=== PATIENT | male | born 1950 | race Caucasian/White ===

== ENCOUNTER → 2022-05-31 | Outpatient (CLI) | payer MEDICARE ==
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
== END | disposition home or self-care (01) ==
LOC: RADPETMAIN 07:51
PROVIDERS: ATTEND Urology
DX: C61 Malignant neoplasm of prostate (principal)
CPT/HCPCS: 78815

== ENCOUNTER → 2022-06-07 | Outpatient (CLI) | payer MEDICARE ==
--- NOTE | 2022-06-09 07:54 | PE ---
EXAMINATION TYPE: PET CT fusion skull to thigh DATE OF EXAM: 06/07/2022 CLINICAL INDICATION:Male, 71 years old with history of C61 prostate ca; TECHNIQUE: Following the intravenous administration of 6.01 mCi of Ga-68 Illuccix (PSMA), whole bod y images are performed from the skull base to the midthigh. Images are reviewed on the computer in t he coronal, axial, and sagittal planes. Reconstructed rotating images are created on independent wor kstation and reviewed on the computer. A non-contrast CT is performed in conjunction with the PET s can. Glucose level 100 mg/dL COMPARISON: CT None, PET/CT None, FINDINGS: Mediastinal SUV mean is 0.4. Hepatic parenchyma SUV mean is 5.4. SKULL BASE AND NECK: Left cheek focus of increased radiotracer uptake max SUV 3.5 measuring 11 x 7 m m. CHEST, MEDIASTINUM, AND HILAR REGION: No suspicious FDG activity. ABDOMEN AND PELVIS: * In the left prostate central gland is an elongated linear area of increased radiotracer uptake max SUV 7.9 is felt to represent the felt to represent urine within the prostatic urethra. * There is a lymph node adjacent to the right urethra at the ureteropelvic junction which measures 6 mm which felt to not not have increased radiotracer uptake uptake nearby is felt to be secondary to the nearby adjacent ureter. OSSEOUS STRUCTURES: No suspicious FDG activity. OTHER CT: Mucosal thickening of the right maxillary sinus. Bilateral aphakia. Degeneration changes ch anges of the shoulders heart is mildly enlarged for size mild coronary artery atherosclerosis. Left n onobstructing renal calculus. Small hiatal hernia. Prostate gland is enlarged. IMPRESSION: 1. No suspicious radiotracer activity to suggest metastatic disease at this time. 2. Left cheek soft tissue with increased radiotracer uptake is felt to represent minor salivary glan d tissue.
== END | disposition home or self-care (01) ==
LOC: RADPETMAIN 06:54
PROVIDERS: ATTEND Urology
DX: C61 Malignant neoplasm of prostate (principal); R22.0 Localized swelling, mass and lump, head
CPT/HCPCS: 78815; A9596

== ENCOUNTER → 2023-05-21 | Outpatient (CLI) | payer MEDICARE ==
--- NOTE | 2023-05-22 08:09 | MR ---
EXAMINATION TYPE: MR Prostate wo/w con DATE OF EXAM: 05/21/2023 10:18 AM COMPARISON: CT 09/17/2022, PET/CT 06/07/2022. CLINICAL INDICATION:Male, 72 years old with history of C61 NEOPLASM OF PROSTATE; Prostate ca, elevate d psa, partial prostate removal TECHNIQUE: Multi-planar, multi-sequence imaging of the pelvis is performed prior to and following the uncomplicated administration of bolus intravenous gadolinium. CONTRAST: 8 Gadavist Interpretive Criteria: PI-RADS v2.1 SERUM PSA: 3.0 on 2022. 2.5 on 07/16/2022. 2.6 vs 2.0 ? on 01/09/2022.(cannot read document) SURGICAL PATHOLOGY: Positive biopsy on 3 of the samples on 04/08/2023. Involving the left lateral mid, left lateral apex a nd left apex FINDINGS: Prostatic dimensions: 5.3 x 4.5 x 4.7 cm. Ellipsoid Volume:58.69 (PSA density=0.05 ng/mL/mL) CENTRAL GLAND (Central and Transition Zones/CZ+TZ): Post transurethral resection of the prostate without suspicious lesion. Stromal nodules noted postsur gical morphology to the central gland. 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 (PI -RADS 2) SEMINAL VESICLES (SV): Symmetric and unremarkable. PERIPROSTATIC TISSUES: Unremarkable. LYMPH NODES: External iliac lymph nodes measuring up to 9 mm in short axis on the right and 8 mm on the left are s table from prior exam. REMAINING PELVIS: Bladder wall is within normal limits given distention. No abnormal free or organized intrapelvic fluid collection. No pathologic bowel dilation or mural thickening. Bilateral fat containing inguinal hernias. OSSEOUS STRUCTURES: No suspicious osseous abnormality. IMPRESSION: 1. Post transurethral resection of the prostate. No specific features for high-risk prostate cancer. Maximum PI-RADS score: 2. 2. No suspicious osseous lesion. No lymphadenopathy. No evidence of prostate adenocarcinoma involving the periprostatic tissues.
== END | disposition home or self-care (01) ==
LOC: RADMRIMAIN 09:08
PROVIDERS: ATTEND Radiology Radiation Oncology
DX: C61 Malignant neoplasm of prostate (principal); R97.20 Elevated prostate specific antigen [PSA]; Z90.79 Acquired absence of other genital organ(s)
CPT/HCPCS: 72197; A9585

== ENCOUNTER → 2023-05-21 | Outpatient (CLI) | payer MEDICARE ==
[2023-05-21 16:50] LABS: ALT 36 U/L (10-49); AST 33 U/L (14-35); Albumin 4.2 g/dL (3.8-4.9); Alkaline Phosphatase 84 U/L (41-126); BUN/Creat Ratio 21.14 Ratio (12.00-20.00); Blood Urea Nitrogen 14.8 mg/dL (9.0-27.0); Calcium 10.3 mg/dL (8.7-10.3); Carbon Dioxide 24.7 mmol/L (21.6-31.8); Chloride 106 mmol/L (96-109); Globulin 2.1 g/dL (1.6-3.3); Glucose 69 mg/dL (70-110); Potassium 4.3 mmol/L (3.5-5.5); Sodium 141 mmol/L (135-145); Total Bilirubin 0.6 mg/dL (0.3-1.2); Total Protein 6.3 g/dL (6.2-8.2)
== END | disposition home or self-care (01) ==
LOC: LABWHC1 10:33
PROVIDERS: ATTEND Internal Medicine Endocrinology, Diabetes & Metabolism
DX: E21.0 Primary hyperparathyroidism (principal)
CPT/HCPCS: 36415; 80053; 82306; 83970; 84443

== ENCOUNTER → 2023-05-27 | Outpatient (CLI) | payer MEDICARE ==
[2023-05-27 18:16] LABS: Basophils # (A) 0.04 X 10*3/uL (0.00-0.10); Basophils % (A) 0.6 %; Eosinophils # (A) 0.17 X 10*3/uL (0.04-0.35); Eosinophils % (A) 2.6 %; HCT 44.5 % (39.6-50.0); Lymphocytes # (A) 1.41 X 10*3/uL (0.90-5.00); MCH 30.4 pg (27.0-32.0); MCHC 31.5 g/dL (32.0-37.0); MCV 96.7 FL (80.0-97.0); Mean Platelet Volume 10.1 FL (9.5-12.2); Monocytes # (A) 0.48 X 10*3/uL (0.20-1.00); Monocytes % (A) 7.5 %; NRBC Per 100 WBC 0 X 10*3/uL (0.00-0.01); Platelet Count 202 X 10*3/uL (140-440); RDW 12.5 % (11.5-14.5); WBC 6.42 X 10*3/uL (4.50-10.00)
[2023-05-27 18:27] LABS: BUN/Creat Ratio 19.67 Ratio (12.00-20.00); Blood Urea Nitrogen 17.7 mg/dL (9.0-27.0); Calcium 10.3 mg/dL (8.7-10.3); Carbon Dioxide 28.9 mmol/L (21.6-31.8); Chloride 107 mmol/L (96-109); Glucose 86 mg/dL (70-110); Potassium 4.7 mmol/L (3.5-5.5); Sodium 144 mmol/L (135-145)
== END | disposition home or self-care (01) ==
LOC: LABPAT 12:49
PROVIDERS: ATTEND Urology
DX: Z01.812 Encounter for preprocedural laboratory examination (principal); C61 Malignant neoplasm of prostate
CPT/HCPCS: 36415; 80048; 85025

== ENCOUNTER 2023-06-05 06:29 | Day surgery (SDC) | payer MEDICARE ==
--- NOTE | 2023-06-04 20:14 | P.GSHP ---
History of Present Illness H&P Date: 06/04/23 Chief Complaint: Prostate cancer The patient is a 72-year-old white male diagnosed with prostate cancer in April 2022. His PSA level at that time was 2.6, and 3 of 12 biopsies showed [place] 6 prostate cancer. He underwent a TURP in 2014 he chose to proceed with active surveillance. He underwent a secondary TURP in August 2022 for persistent voiding symptoms despite taking finasteride. Prostate ultrasound with biopsies in April 2023 showed [place] 7 adenocarcinoma in 3 of 12 biopsies. He has elected to undergo IMRT and now commes for SpaceOAR implant. - Cardiovascular Cardiovascular: Reports high blood pressure Past Medical History Past Medical History: Cancer, Hypertension, Osteoarthritis (OA), Thyroid Disorder Additional Past Medical History / Comment(s): hx of benign tumors on thyroid., hx of cellulitis leg & foot., covid 06/2021 with antibody tx., curvature of spine & back pain., urine incontinence, cancer of prostate., Pt states he had 2 episodes where he felt "disoriented" and was taken to the hospital-[facility] in mar 2022- was told he had an infection and diagnosed with prostate cancer. red rash rt wrist and arm. History of Any Multi-Drug Resistant Organisms: None Reported Past Surgical History: Appendectomy, Joint Replacement, Orthopedic Surgery, Tonsillectomy Additional Past Surgical History / Comment(s): .1976 knee surgery, reilly total knees x2 each., 1998 thyroid tumors removed., prostate surgery.,"microwave" "prostate procedure Past Anesthesia/Blood Transfusion Reactions: No Reported Reaction Smoking Status: Never smoker - Past Family History Mother Family Medical History: No Reported History Father Family Medical History: Deep Vein Thrombosis (DVT) Medications and Allergies Home Medications Medication Instructions Recorded Confirmed Type Ascorbic Acid [Vitamin C] 1,000 mg PO BID 08/23/22 05/28/23 History Cholecalciferol [Vitamin D3 (25 50 mcg PO BID 08/23/22 05/28/23 History Mcg = 1000 Iu)] Diclofenac Sodium [Voltaren 1 applic TOPICAL DIRECTED 08/23/22 05/28/23 History Arthritis Pain 1% Gel] Ferrous Sulfate [Feosol] 325 mg PO DAILY 08/23/22 05/28/23 History Finasteride [Proscar] 5 mg PO HS 08/23/22 05/28/23 History Hydroxychloroquine Sulfate 200 mg PO BID 08/23/22 05/28/23 History [Plaquenil] Mv-Min/Folic/K1/Lycopen/Lutein 1 each PO DAILY 08/23/22 05/28/23 History [Centrum Silver Men Tablet] amLODIPine [Norvasc] 5 mg PO DAILY 08/23/22 05/28/23 History Cinacalcet [Sensipar] 30 mg PO HS 05/28/23 05/28/23 History Oxybutynin ER [Ditropan XL] 10 mg PO HS 05/28/23 05/28/23 History Allergies Allergy/AdvReac Type Severity Reaction Status Date / Time prednisone Allergy Unknown Rash/Hives Verified 05/28/23 13:45 Surgical - Exam - General well developed, well nourished, no distress - Respiratory normal respiratory effort - Genitourinary normal penis with no external lesions, testicles non-tender - Rectum Rectum: normal sphincter tone, no masses, other (Prostate mildly enlarged but smooth) - Psychiatric oriented to time, oriented to person, oriented to place, speech is normal, memory intact Assessment and Plan (1) Malignant neoplasm of prostate Status: Acute Code(s): C61 - MALIGNANT NEOPLASM OF PROSTATE SNOMED Code(s): 698615921 Plan: The SpaceOar implant has been reviewed in detail with the patient. He understands that the rationale for this is to create separation between the prostate and rectum, thus reducing the risk of radiation proctitis. The material begins to breakdown 12-13 weeks following implant, and is reabsorbed by the body. Risks include anesthesia, bleeding, infection, and perineal discomfort. He understands that if the rectal wall is perforated the procedure will need to be aborted.
[2023-06-05] MEDS ORDERED: ONDANSETRON 4 MG/2 ML VIAL IVP ONE (07:27)
[2023-06-05] MEDS ORDERED: LACTATED RINGERS 1,000 ML IV SCH (07:27)
[2023-06-05] MEDS ORDERED: HYDROmorphone 0.5 MG/0.5 ML SYRINGE IVP PRN (07:27)
[2023-06-05 08:04] VITALS: TEMP 97.8
[2023-06-05] MEDS ORDERED: fentaNYL (PF) 50 MCG/ML 2 ML AMP ONE (09:12)
[2023-06-05] MEDS ORDERED: MIDAZOLAM 2 MG/2 ML VIAL ONE (09:12)
[2023-06-05] MEDS ORDERED: PROPOFOL 10 MG/ML 20 ML VIAL IV ONE (09:12)
[2023-06-05] MEDS ORDERED: LIDOCAINE 2% INJ 20 MG/ML SQ ONE (09:32)
--- NOTE | 2023-06-05 09:43 | P.OP ---
Date of Procedure: 06/05/23 Preoperative Diagnosis: Adenocarcinoma of the prostate Postoperative Diagnosis: Same Procedure(s) Performed: SpaceOAR Implant Anesthesia: MAC Surgeon: Gennaro Lucero Estimated Blood Loss (ml): 5 IV fluids (ml): 500 Pathology: none sent Condition: stable Disposition: PACU Indications for Procedure: The patient is a 72-year-old white male diagnosed with prostate cancer in April 2022. His PSA level at that time was 2.6, and 3 of 12 biopsies showed [place] 6 prostate cancer. He underwent a TURP in 2014 he chose to proceed with active surveillance. He underwent a secondary TURP in August 2022 for persistent voiding symptoms despite taking finasteride. Prostate ultrasound with biopsies in April 2023 showed Trisha 7 adenocarcinoma in 3 of 12 biopsies. He has elected to undergo IMRT and now commes for SpaceOAR implant. Operative Findings: 15 mm separation created between prostate and rectum. Description of Procedure: The patient was taken to the operating room and placed in the dorsolithotomy position, with his legs supported in Antwan stirrups. The external genitalia was prepped and draped sterilely. The Bruel and Kjaer transrectal ultrasound probe was placed intrarectally. The prostate was imaged. The probe was then placed within the stabilizing stand. A spinal needle was advanced under ultrasonic guidance to the level of the urogenital diaphragm, and lidocaine was used to infiltrate the tissues as the needle was withdrawn. Next, the SpaceOAR needle was passed through the midline of the perineum, 1-2 cm anterior to the anal opening. The needle was slowly advanced under ultrasonic guidance until the needle tip was located within the fat plane between the prostate and rectum, at the level of the mid prostate gland. The needle was confirmed to be midline on the axial imaging. A small amount of normal saline was injected for hydrodissection. Next, the SpaceOAR components were mixed and loaded into the Y connector per protocol. The Y connector was then connected to the needle, and the components were injected slowly over a course of approximately 12 seconds. A total of 11 ml was injected. Significant distance was created between the prostate and rectum, as desired. It should be noted that at no point was there any concern of rectal perforation. The needle was withdrawn, as well as the transrectal ultrasound probe, and the procedure was terminated. The patient tolerated the procedure well and was taken to the recovery room in stable condition.
[2023-06-05 10:22] VITALS: RESP 16
[2023-06-05 10:46] VITALS: BP 132/79; PULSE 59
== END 2023-06-05 10:48 | disposition home or self-care (01) ==
LOC: OR 06:29
PROVIDERS: ATTEND Urology
DX: C61 Malignant neoplasm of prostate (principal); I10 Essential (primary) hypertension; M19.90 Unspecified osteoarthritis, unspecified site; E07.9 Disorder of thyroid, unspecified; Z86.16 Personal history of COVID-19; Z90.49 Acquired absence of other specified parts of digestive tract; Z85.46 Personal history of malignant neoplasm of prostate; Z96.659 Presence of unspecified artificial knee joint; Z98.890 Other specified postprocedural states; Z79.899 Other long term (current) drug therapy; Z88.8 Allergy status to other drugs, medicaments and biological substances
CPT/HCPCS: 55874; C1889; J2001; J2250; J0690; J2405; J3010; J2704

== ENCOUNTER → 2023-07-16 | Outpatient (CLI) | payer MEDICARE | END | disposition home or self-care (01) | LOC: LABWHC1 11:47 | PROVIDERS: ATTEND Urology | DX: C61 Malignant neoplasm of prostate (principal) | CPT/HCPCS: 36415; 84153 ==

== ENCOUNTER → 2024-09-24 | Outpatient (CLI) | payer MEDICARE ==
[2024-09-25 02:37] LABS: Calcium 11.2 mg/dL (8.7-10.3); Carbon Dioxide 29.6 mmol/L (21.6-31.8); Chloride 105 mmol/L (96-109); Glucose 93 mg/dL (70-110); Potassium 5.1 mmol/L (3.5-5.5); Sodium 144 mmol/L (135-145)
[2024-09-25 02:46] LABS: NT-Pro-B-Type Natriuretic Pept 1396 pg/mL (0-125)
== END | disposition home or self-care (01) ==
LOC: LABWHC1 14:55
PROVIDERS: ATTEND Internal Medicine Cardiovascular Disease
DX: I50.22 Chronic systolic (congestive) heart failure (principal)
CPT/HCPCS: 36415; 80048; 83880

== ENCOUNTER 2024-12-23 15:52 | Inpatient (IN) | payer MEDICARE ==
--- NOTE | 2024-12-23 16:15 | ED ---
General Adult HPI - General Chief complaint: Weakness Stated complaint: dizziness Time Seen by Provider: 12/23/24 15:54 Source: patient, EMS, RN notes reviewed Mode of arrival: EMS Limitations: no limitations - History of Present Illness Initial comments: Patient is a 73-year-old male present to the emergency department with concerns with dizziness. Patient did go to [place] and was found to have elevated troponin and transferred here for non-ST elevation myocardial infarction. There is also concern for tachybradycardia syndrome based off EKG changes. Patient had head CT which was reported as unremarkable. I do not find record of chest x-ray and this will be added. Patient reportedly had elevated troponin 0.125. Patient states only has symptoms when he gets up and moves around. Currently patient is symptom-free. No history of chest pain. Patient does see Dr. Leyva with cardiology. - Related Data Home Medications Medication Instructions Recorded Confirmed Ascorbic Acid [Vitamin C] 1,000 mg PO BID 08/23/22 06/05/23 Cholecalciferol [Vitamin D3 (25 50 mcg PO BID 08/23/22 05/28/23 Mcg = 1000 Iu)] Diclofenac Sodium [Voltaren 1 applic TOPICAL DIRECTED 08/23/22 05/28/23 Arthritis Pain 1% Gel] Ferrous Sulfate [Feosol] 325 mg PO DAILY 08/23/22 06/05/23 Finasteride [Proscar] 5 mg PO HS 08/23/22 05/28/23 Hydroxychloroquine Sulfate 200 mg PO BID 08/23/22 05/28/23 [Plaquenil] Mv-Min/Folic/K1/Lycopen/Lutein 1 each PO DAILY 08/23/22 06/05/23 [Centrum Silver Men Tablet] amLODIPine [Norvasc] 5 mg PO DAILY 08/23/22 06/05/23 Cinacalcet [Sensipar] 30 mg PO HS 05/28/23 05/28/23 Oxybutynin ER [Ditropan XL] 10 mg PO HS 05/28/23 05/28/23 Allergies Allergy/AdvReac Type Severity Reaction Status Date / Time prednisone Allergy Unknown Rash/Hives Verified 06/05/23 07:45 Review of Systems ROS Statement: Those systems with pertinent positive or pertinent negative responses have been documented in the HPI. ROS Other: All systems not noted in ROS Statement are negative. Constitutional: Denies: fever Eyes: Denies: eye pain ENT: Denies: ear pain Respiratory: Denies: dyspnea Cardiovascular: Denies: chest pain Endocrine: Denies: fatigue Gastrointestinal: Denies: abdominal pain Genitourinary: Denies: dysuria Musculoskeletal: Denies: back pain Neurological: Reports: as per HPI. Denies: headache, weakness Past Medical History Past Medical History: Hypertension, Osteoarthritis (OA) Additional Past Medical History / Comment(s): hx of benign tumors on thyroid., hx of cellulitis leg & foot., covid 06/2021 with antibody tx., curvature of spine & back pain., urine incontinence, cancer of prostate., Pt states he had 2 episodes where he felt "disoriented" and was taken to the hospital-[facility] in mar 2022- was told he had an infection and diagnosed with prostate cancer. History of Any Multi-Drug Resistant Organisms: None Reported Past Surgical History: Appendectomy, Joint Replacement, Orthopedic Surgery, Tonsillectomy Additional Past Surgical History / Comment(s): .1976 knee surgery, reilly total knees x2 each., 1998 thyroid tumors removed., prostate surgery.,"microwave" "prostate procedure Past Anesthesia/Blood Transfusion Reactions: No Reported Reaction Smoking Status: Never smoker - Past Family History Mother Family Medical History: No Reported History Father Family Medical History: Deep Vein Thrombosis (DVT) General Exam Limitations: no limitations General appearance: alert, in no apparent distress Head exam: Present: normocephalic Eye exam: Present: normal appearance, PERRL, EOMI Neck exam: Present: normal inspection Respiratory exam: Present: normal lung sounds bilaterally Cardiovascular Exam: Present: regular rate, normal rhythm Expanded Peripheral pulses: 2+: Radial (R), Radial (L), Posterior Tibialis (R), Posterior Tibialis (L) GI/Abdominal exam: Present: soft. Absent: tenderness Extremities exam: Present: normal inspection. Absent: pedal edema, calf tenderness Neurological exam: Present: alert Psychiatric exam: Present: normal affect, normal mood Skin exam: Present: normal color EKG Findings - EKG Results: EKG: interpreted by ERMD (Left axis. Nonspecific intraventricular conduction delay. Poor R wave progression.), sinus rhythm, normal ST/T EKG shows: bradycardia Medical Decision Making - Medical Decision Making Was pt. sent in by a medical professional or institution (OUMAR Forrest, INVESTOR RELATIONS COORDINATOR, urgent care, hospital, or penitentiary...) When possible be specific @ -Patient sent from [facility] Did you speak to anyone other than the patient for history (EMS, parent, family, police, friend...)? What history was obtained from this source @ -Chart reviewed from [facility] Did you review nursing and triage notes (agree or disagree)? Why? @ -I reviewed and agree with nursing and triage notes Were old charts reviewed (outside hosp., previous admission, EMS record, old EKG, old radiological studies, urgent care reports/EKG's, penitentiary records)? Report findings @ -No old charts were reviewed Differential Diagnosis (chest pain, altered mental status, abdominal pain women, abdominal pain men, vaginal bleeding, weakness, fever, dyspnea, syncope, headache, dizziness, GI bleed, back pain, seizure, CVA, palpatations, mental health, musculoskeletal)? @ -Differential Chest Pain: Stable Angina, Unstable Angina, STEMI, NSTEMI Aortic Dissection, Pneumothorax, Musculoskeletal, Esophageal Spasm GERD, Cholecystitis, Pancreatitis, Zoster, this is not meant to be an all-inclusive list. EKG interpreted by me (3pts min.). @ -As above X-rays interpreted by me (1pt min.). @ -Chest x-ray does not reveal acute abnormality CT interpreted by me (1pt min.). @ -None done U/S interpreted by me (1pt. min.). @ -None done What testing was considered but not performed or refused? (CT, X-rays, U/S, labs)? Why? @ -Chest x-ray ordered, troponin ordered What meds were considered but not given or refused? Why? @ -None Did you discuss the management of the patient with other professionals (professionals i.e. OUMAR Forrest, INVESTOR RELATIONS COORDINATOR, lab, RT, psych nurse, social services, fraternity adviser, teacher, flight radio officer, manager of case)? Give summary @ -Case discussed with practitioner Yung who will admit covering hospital call. Was smoking cessation discussed for >3mins.? @ -No Was critical care preformed (if so, how long)? @ -31 minutes critical care time Were there social determinants of health that impacted care today? How? (Homelessness, low income, unemployed, alcoholism, drug addiction, transportation, low edu. Level, literacy, decrease access to med. care, assisted, rehab)? @ -No Was there de-escalation of care discussed even if they declined (Discuss DNR or withdrawal of care, Hospice)? DNR status @ -No What co-morbidities impacted this encounter? (DM, HTN, Smoking, COPD, CAD, Cancer, CVA, ARF, Chemo, Hep., AIDS, mental health diagnosis, sleep apnea, morbid obesity)? @ -History of cardiac disease, sees Dr. Leyva Was patient admitted / discharged? Hospital course, mention meds given and route, prescriptions, significant lab abnormalities, going to OR and other pertinent info. @ -Patient transferred with concerns for elevated troponin and tachybradycardia syndrome. Patient is symptom-free at this time. Patient has reported elevated troponin and started on Lovenox. Patient will be started on heparin later this evening. Patient will be admitted with cardiac consultation. Troponin redrawn. Patient updated on plan. Undiagnosed new problem with uncertain prognosis? @ -No Drug Therapy requiring intensive monitoring for toxicity (Heparin, Nitro, Insulin, Cardizem)? @ -Heparin to be started Were any procedures done? @ -No Diagnosis/symptom? @ -Non-ST elevation myocardial infarction Acute, or Chronic, or Acute on Chronic? @ -Acute Uncomplicated (without systemic symptoms) or Complicated (systemic symptoms)? @ -Default Side effects of treatment? @ -No Exacerbation, Progression, or Severe Exacerbation? @ -No Poses a threat to life or bodily function? How? (Chest pain, [place], [place], pneumonia, PE, COPD, DKA, ARF, appy, cholecystitis, CVA, Diverticulitis, Homicidal, Suicidal, threat to staff... and all critical care pts) @ -Threat to cardiac function Disposition Clinical Impression: NSTEMI (non-ST elevated myocardial infarction) Disposition: ADMITTED IP TO THIS HOSP Is patient prescribed a controlled substance at d/c from ED?: No Referrals: Zane Roth DO [Primary Care Provider] - 1-2 days Time of Disposition: 16:51
[2024-12-23] MEDS ORDERED: NITROGLYCERIN SL TABS 0.4 MG TAB SUBLINGUAL PRN (16:52)
--- NOTE | 2024-12-23 16:57 | XR ---
EXAMINATION TYPE: XR chest 2V DATE OF EXAM: 12/23/2024 4:47 PM COMPARISON: PET CT 06/07/2022 TECHNIQUE: XR chest 2V Frontal and lateral views of the chest. CLINICAL INDICATION:Male, 73 years old with history of cp; FINDINGS: Lungs/Pleura: There is no evidence of pleural effusion, focal consolidation, or pneumothorax. Pulmonary vascularity: Unremarkable. Heart/mediastinum: Cardiomediastinal silhouette is prominent in size. Musculoskeletal: Multiple level degenerative disc disease changes seen throughout the spine. Bilatera l shoulder arthropathy. Other: Surgical clips within the right lower neck. IMPRESSION: No acute cardiopulmonary disease/process. [facility], , 12/23/2024 4:54 PM
[2024-12-23] MEDS: ASPIRIN 81 MG PO STA (17:07)
--- NOTE | 2024-12-23 18:06 | P.HPIM ---
History of Present Illness H&P Date: 12/23/24 History of Presenting Illness: Patient is a very pleasant 73-year-old male with a past medical history of prostate cancer status post prostatectomy followed by radiation treatment, skin cancer status post removal, colon cancer status post bowel resection, hypertension, chronic urinary and bowel incontinence, and recently diagnosed heart failure. 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 He presented to our facility as a transfer from [facility] where he initially presented with a chief complaint of dizziness and balance issues. Patient underwent evaluation at their facility. Vital signs upon arrival to their facility show blood pressure 129/68, heart rate 101, respiratory rate 18, and SpO2 of 98% on room air. CT head without contrast was completed negative for acute intercranial process showing nonspecific white matter changes likely secondary to chronic small vessel ischemic disease. Labs completed and reviewed. CBC showing WBC count of 5.37, hemoglobin of 15.0, and platelet count of 196. BMP showing sodium 139, potassium 4.9, chloride of 107, bicarb of 27, BUN of 32.4, creatinine 1.08, and GFR of 71.04. Calcium 10.6, . Blood glucose 120. Liver profile unremarkable. Magnesium 2.8. Procalcitonin negative at 0.07. TSH 1.19. Lactic acid was 1.2 troponin was elevated at 0.125. EKG revealing sinus mechanism with T wave inversion in lateral leads I and aVL. Patient was given aspirin 325 mg x 1 dose, Plavix 75 mg x 1 dose and Lovenox 80 mg subcutaneously and transferred to our facility for higher level of care. Upon arrival to our facility, patient again underwent evaluation in the emergency department. Vital signs completed and reviewed. Blood pressure 109/91, heart rate 54, respiratory rate 18, temp 98.2 F, and SpO2 of 98% on room air. EKG upon arrival showing sinus bradycardia at 51 bpm again with T wave inversion in lateral leads I and aVL. Chest x-ray completed negative for acute cardiopulmonary process. Patient was started on low intensity heparin infusion for treatment of NSTEMI and admitted under our services with consultation to cardiology. Patient was seen and fully evaluated in ER room 23. He currently reports feeling slightly dizzy and off and states when he gets out of bed he does feel his balance is off. He denies having any headache, changes in vision or hearing, chest pain or palpitations, shortness of breath or exertional dyspnea, cough or congestion, nausea, vomiting, or experiencing any back pain, jaw pain, neck pain, or shoulder pain. Patient denies having any numbness/tingling/weakness/swelling in his extremities. Review of systems: Pertinent positives and negatives as discussed in HPI, a complete review of systems was performed and all other systems are negative. Physical exam: Vital signs reviewed and stable. General: Nontoxic, no distress and appears stated age. Derm: Skin warm and dry, normal coloration for ethnicity. Head: Atraumatic, normocephalic and symmetric. Eyes: EOM's intact, no lid lag, and anicteric sclera Mouth: no lip lesions, mucus membranes moist Cardiovascular: regular rate and rhythm with normal S1S2, no murmur, positive posterior tibial pulses bilaterally, and cap refill < 2 seconds. Lungs: Respirations even, regular, and unlabored on room air. Lungs CTA bilaterally, no rhonchi, no rales, no wheezing, and no accessory muscle usage. Abdominal: soft, nontender to palpation, no guarding, no appreciable organomegaly Ext: ROM intact. No gross muscle atrophy, no edema, no contractures Neuro: Speech clear, face symmetrical and CN II-XII grossly intact with no noted focal neuro deficits Psych: Alert and oriented to person, place, time, and situation. Appropriate and pleasant affect. Assessment and Plan of Care: NSTEMI Symptomatic bradycardia History of hypertension History of congestive heart failure, unknown type (suspect systolic based upon medications patient was placed on) -Cardiology consulted, appreciate recommendations -Continue low intensity heparin infusion with close monitoring of PTT every 6 hours for goal therapeutic range of 45 to 79 seconds. -Telemetry monitoring -Trend troponins -Cardiac diet, NPO at midnight -Continue cardiac medication regimen with aspirin 81 mg daily, atorvastatin 40 mg nightly, Farxiga 10 mg daily, Lasix 40 mg daily, Plaquenil 200 mg twice daily, metoprolol 25 mg daily, and Aldactone 25 mg daily. Order placed on metoprolol to hold for heart rate less than 60 -Lipid profile with a.m. labs. -Echocardiogram History of prostate cancer with chronic urinary incontinence History of colon cancer status postsurgical resection with chronic bowel incontinence -Continue Flomax 0.4 mg twice daily. -Outpatient follow-up with age-appropriate cancer screenings.. Data and imaging reviewed: -As stated above in HPI The patient is admitted with an anticipated greater than 2 midnight stay for evaluation of NSTEMI CODE STATUS: Full code DVT prophylaxis: Low intensity heparin infusion Discussed with: Patient, RN, and ED physician Anticipated discharge date: Pending clinical course Anticipated discharge place: Home Patient was seen independently by Nurse Practitioner. This document was prepared using [employer] dictation software. Please allow for errors in pattern lease inspector while rare they do occur. Yung Guzmán NP rendered care for this patient independently, reviewed the findings and plan as documented in the note above and agree with plan. I did not physically speak with or examine the patient on this date. Past Medical History Past Medical History: Hypertension, Osteoarthritis (OA) Additional Past Medical History / Comment(s): hx of benign tumors on thyroid., hx of cellulitis leg & foot., covid 06/2021 with antibody tx., curvature of spine & back pain., urine incontinence, cancer of prostate., Pt states he had 2 episodes where he felt "disoriented" and was taken to the hospital-[facility] [address] in mar 2022- was told he had an infection and diagnosed with prostate cancer. History of Any Multi-Drug Resistant Organisms: None Reported Past Surgical History: Appendectomy, Joint Replacement, Orthopedic Surgery, Tonsillectomy Additional Past Surgical History / Comment(s): .1976 knee surgery, reilly total knees x2 each., 1998 thyroid tumors removed., prostate surgery.,"microwave" "prostate procedure Past Anesthesia/Blood Transfusion Reactions: No Reported Reaction Smoking Status: Never smoker - Past Family History Mother Family Medical History: No Reported History Father Family Medical History: Deep Vein Thrombosis (DVT) Medications and Allergies Home Medications Medication Instructions Recorded Confirmed Type Ascorbic Acid [Vitamin C] 1,000 mg PO BID 08/23/22 12/23/24 History Hydroxychloroquine Sulfate 200 mg PO BID 08/23/22 12/23/24 History [Plaquenil] Mv-Min/Folic/K1/Lycopen/Lutein 1 tab PO DAILY 08/23/22 12/23/24 History [Centrum Silver Men Tablet] Cholecalciferol [Vitamin D3 (125 125 mcg PO DAILY 12/23/24 12/23/24 History Mcg = 5000 Iu)] Dapagliflozin Propanediol [Farxiga] 10 mg PO DAILY 12/23/24 12/23/24 History Furosemide [Lasix] 40 mg PO DAILY 12/23/24 12/23/24 History Ibuprofen [Motrin] 400 mg PO TID 12/23/24 12/23/24 History Metoprolol Succinate (ER) [Toprol 25 mg PO DAILY 12/23/24 12/23/24 History Xl] Spironolactone [Aldactone] 25 mg PO W/BRKFST 12/23/24 12/23/24 History Tamsulosin [Flomax] 0.4 mg PO BID 12/23/24 12/23/24 History tadalafiL [Cialis] 5 mg PO DAILY 12/23/24 12/23/24 History Allergies Allergy/AdvReac Type Severity Reaction Status Date / Time prednisone Allergy Unknown Rash/Hives Verified 06/05/23 07:45 Physical Exam Vitals: Intake and Output 12/23/24 12/23/24 12/23/24 06:59 14:59 22:59 Other: Weight 76.657 kg
[2024-12-23] MEDS: HEPARIN SOD,PORK IN 0.45% NACL 25,000 UNIT in 0.45% NACL 1 250ML.BAG IV SCH (18:17)
[2024-12-23] MEDS: ASCORBIC ACID 500 MG TAB PO SCH (21:38)
[2024-12-23] MEDS: ATORVASTATIN 40 MG TAB PO SCH (21:38)
[2024-12-23] MEDS: TAMSULOSIN 0.4 MG CAP.ER.24H PO SCH (21:38)
[2024-12-23] MEDS: HYDROXYCHLOROQUINE SULFATE 200 MG TAB PO SCH (21:39)
[2024-12-24] MEDS: SPIRONOLACTONE 25 MG TAB PO SCH (07:47)
[2024-12-24 08:13] LABS: HCT 46.1 % (39.6-50.0); MCH 30.9 pg (27.0-32.0); MCHC 32.5 g/dL (32.0-37.0); MCV 95.1 fL (80.0-97.0); Mean Platelet Volume 9.1 fL (9.5-12.2); Platelet Count 170 10*3/uL (140-440); RBC 4.85 10*6/uL (4.40-5.60); RDW 13.6 % (11.5-14.5)
[2024-12-24] MEDS ORDERED: ASPIRIN 325 MG TAB PO SCH (09:00)
[2024-12-24] MEDS: DAPAGLIFLOZIN PROPANEDIOL 10 MG TABLET PO SCH (09:28)
[2024-12-24] MEDS: MULTIVITAMINS, THERA 1 EACH TAB PO SCH (09:28)
[2024-12-24] MEDS: FUROSEMIDE 40 MG TAB PO SCH (09:28)
[2024-12-24] MEDS: CHOLECALCIFEROL 125 MCG (5000 IU) TABLET PO SCH (09:29)
[2024-12-24] MEDS: METOPROLOL SUCCINATE (ER) 25 MG TAB.ER.24H PO SCH (09:29)
[2024-12-24] MEDS: ASPIRIN 81 MG PO SCH (09:29)
[2024-12-24 10:15] LABS: ALT 31 U/L (4-49); AST 37 U/L (17-59); African American GFR (CKD) >90 (>60 ml/min/1.73 sqM); Alkaline Phosphatase 113 U/L (38-126); Anion Gap 6 mmol/L; Blood Urea Nitrogen 26 mg/dL (9-20); Carbon Dioxide 24 mmol/L (22-30); Chloride 110 mmol/L (98-107); Glucose 93 mg/dL (74-99); Magnesium 2.7 mg/dL (1.6-2.3); Non-African American GFR(CKD) 89 (>60 ml/min/1.73 sqM); Potassium 4.6 mmol/L (3.5-5.1); Sodium 140 mmol/L (137-145); Total Bilirubin 0.5 mg/dL (0.2-1.3); Total Protein 6.5 g/dL (6.3-8.2)
--- NOTE | 2024-12-24 11:30 | P.CRDCN ---
History of Present Illness Consult date: 12/24/24 Reason for Consult (text): NSTEMI History of present illness: This is a 73-year-old male patient of Dr. Richard Leach with past medical history of coronary artery disease, chronic systolic heart failure, hypertension. We have been asked to evaluate the patient for NSTEMI. Patient states he went to the hospital because of difficulty with his balance. He states he felt like he was going to fall over and had loss of balance but did not have any falls and no loss of consciousness. He states that his vision is fine during the episodes. He has no other symptoms. Patient apparently presented to [facility] for near syncopal episode, he was diuresed in the emergency center there was some concern regarding AV block but upon review of all of the EKGs, it appears that patient is in a sinus rhythm with PACs. No significant pauses noted. Patient has been started on a heparin drip. Patient is seen today in the emergency center waiting for a bed on the cardiac stepdown unit. Blood pressure 110/67, heart rate 63, pulse ox 90% on room air. -EKG: Sinus bradycardia. -Chest x-ray: No acute process. -Laboratory studies: Troponin 0.123, 0.12, 0.11. BUN 26, creatinine 0.78. WBC 5.1, hemoglobin 15. -Home cardiac medications: Farxiga 10 mg daily, Lasix 40 mg daily, metoprolol succinate 25 mg daily, spironolactone 25 mg daily. -Event monitor performed 06/25/2024 - 07/01/2024 revealed sinus rhythm average heart rate 70, minimum 49 and maximum 138. SVE burden 0.49%. PVC burden 0.62%. -Lexiscan Cardiolite stress test performed in the office on 07/01/2024 was negative stress test by EKG criteria. Abnormal nuclear scan showing evidence of prior inferior wall myocardial infarction with mild LV dysfunction without ischemia. Review Of Systems: At the time of my exam: CONSTITUTIONAL: Denies fever or chills. HEENT: Denies blurred vision, vision changes, or eye pain. Denies hemoptysis CARDIOVASCULAR: Denies chest pain. Denies orthopnea. Denies PND. Denies palpitations RESPIRATORY: Denies shortness of breath. GASTROINTESTINAL: Denies abdominal pain. Denies nausea or vomiting. HEMATOLOGIC: Denies bleeding disorders. GENITOURINARY: Denies any blood in urine. SKIN: Denies puritis. Denies rash. Physical examination: Gen: This is 73-year-old male in no acute distress VS: reviewed HEENT: Head is atraumatic, normocephalic. Pupils equal, round. Sclerae is anicteric. NECK: Supple. No JVD. LUNGS: Clear to auscultation. No wheezes or rhonchi. No intercostal retractions. HEART: Regular rate and rhythm. No murmur. ABDOMEN: Soft No tenderness. EXTREMITIES: No pedal edema. No calf tenderness. NEUROLOGICAL: Patient is awake, alert and oriented x3. Assessment: Presented with balance issue, no syncope Elevated troponin with flat pattern, not indicative of acute coronary syndrome Bradycardia, monitor for pauses History of coronary artery disease Chronic systolic heart failure Hypertension History of prostate cancer Plan: Resume patient's home cardiac medications with the following changes: Hold beta-da Continue telemetry monitoring Discontinue heparin drip Obtain 2-D echocardiogram and Doppler study to assess cardiac structure and function At the time of discharge, patient will follow-up in the office with Dr. Richard Leach for outpatient stress testing. Thank you kindly for this consultation. Nurse practitioner note has been reviewed, I agree with documented findings and plan of care. Patient was seen and examined. Past Medical History Past Medical History: Hypertension, Osteoarthritis (OA) Additional Past Medical History / Comment(s): hx of benign tumors on thyroid., hx of cellulitis leg & foot., covid 06/2021 with antibody tx., curvature of spine & back pain., urine incontinence, cancer of prostate., Pt states he had 2 episodes where he felt "disoriented" and was taken to the hospital-[facility] in mar 2022- was told he had an infection and diagnosed with prostate cancer. History of Any Multi-Drug Resistant Organisms: None Reported Past Surgical History: Appendectomy, Joint Replacement, Orthopedic Surgery, Tonsillectomy Additional Past Surgical History / Comment(s): .1977 knee surgery, reilly total knees x2 each., 1998 thyroid tumors removed., prostate surgery.,"microwave" "prostate procedure Past Anesthesia/Blood Transfusion Reactions: No Reported Reaction Smoking Status: Never smoker - Past Family History Mother Family Medical History: No Reported History Father Family Medical History: Deep Vein Thrombosis (DVT) Medications and Allergies Home Medications Medication Instructions Recorded Confirmed Type Ascorbic Acid [Vitamin C] 1,000 mg PO BID 08/23/22 12/23/24 History Hydroxychloroquine Sulfate 200 mg PO BID 08/23/22 12/23/24 History [Plaquenil] Mv-Min/Folic/K1/Lycopen/Lutein 1 tab PO DAILY 08/23/22 12/23/24 History [Centrum Silver Men Tablet] Cholecalciferol [Vitamin D3 (125 125 mcg PO DAILY 12/23/24 12/23/24 History Mcg = 5000 Iu)] Dapagliflozin Propanediol [Farxiga] 10 mg PO DAILY 12/23/24 12/23/24 History Furosemide [Lasix] 40 mg PO DAILY 12/23/24 12/23/24 History Ibuprofen [Motrin] 400 mg PO TID 12/23/24 12/23/24 History Metoprolol Succinate (ER) [Toprol 25 mg PO DAILY 12/23/24 12/23/24 History Xl] Spironolactone [Aldactone] 25 mg PO W/BRKFST 12/23/24 12/23/24 History Tamsulosin [Flomax] 0.4 mg PO BID 12/23/24 12/23/24 History tadalafiL [Cialis] 5 mg PO DAILY 12/23/24 12/23/24 History Allergies Allergy/AdvReac Type Severity Reaction Status Date / Time prednisone Allergy Unknown Rash/Hives Verified 12/23/24 19:01 Physical Exam Vitals: Vital Signs Temp Pulse Pulse Resp BP BP Pulse Ox 12/24/24 07:45 111 H 17 117/88 98 12/24/24 06:00 47 L 15 104/83 98 12/24/24 05:00 51 L 15 104/64 97 12/24/24 04:00 52 L 16 105/67 97 12/24/24 03:30 99 18 122/94 97 12/24/24 03:00 48 L 16 93/72 96 12/24/24 02:00 43 L 16 118/64 94 L 12/24/24 01:00 62 16 101/79 96 12/24/24 00:00 49 L 16 118/88 95 12/23/24 23:00 81 16 100/63 96 12/23/24 21:00 16 118/88 98 06/19/25 20:00 53 L 14 114/76 97 12/23/24 18:00 98.2 F 54 L 18 109/91 98 Intake and Output 12/23/24 12/24/24 12/24/24 22:59 06:59 14:59 Other: Weight 76.657 kg Results 12/24/24 07:37 12/24/24 07:37 Cardiac Enzymes 12/23/24 12/23/24 12/24/24 Range/Units 17:30 20:19 00:35 Troponin I 0.123 H* 0.122 H* 0.112 H* (0.000-0.034) ng/mL Coagulation 12/23/24 12/24/24 Range/Units 20:19 00:35 APTT 38.1 H 47.2 H (22.0-30.0) sec CBC 12/24/24 Range/Units 07:37 WBC 5.10 (4.50-10.00) 10*3/uL RBC 4.85 (4.40-5.60) 10*6/uL Hgb 15.0 (13.0-17.0) g/dL Hct 46.1 (39.6-50.0) % Plt Count 170 (140-440) 10*3/uL Current Medications Generic Name Dose Route Start Last Admin Trade Name Freq PRN Reason Stop Dose Admin Ascorbic Acid 1,000 mg 12/23/24 21:00 12/23/24 21:38 Ascorbic Acid 500 Mg Tab PO 1,000 mg BID DORINA Administration Aspirin 81 mg 12/24/24 09:00 Aspirin 81 Mg PO DAILY [facility] Atorvastatin Calcium 40 mg 12/23/24 21:00 12/23/24 21:38 Atorvastatin 40 Mg Tab PO 40 mg HS DORINA Administration Cholecalciferol 125 mcg 12/24/24 09:00 Cholecalciferol 125 Mcg (5000 Iu) Tablet PO DAILY DORINA Dapagliflozin 10 mg 12/24/24 09:00 Dapagliflozin Propanediol 10 Mg Tablet PO DAILY DORINA Furosemide 40 mg 12/24/24 09:00 Furosemide 40 Mg Tab PO DAILY DORINA Hydroxychloroquine Sulfate 200 mg 12/23/24 21:00 12/23/24 21:39 Hydroxychloroquine Sulfate 200 Mg Tab PO 200 mg BID DORINA Administration Heparin Sodium/Sodium Chloride 250 mls @ 9.199 mls/hr 12/23/24 19:00 12/23/24 18:17 25,000 unit/ Sodium Chloride IV 12 units/kg/hr .Q24H DORINA 9.199 mls/hr Administration Protocol 12 UNITS/KG/HR Metoprolol Succinate 25 mg 12/24/24 09:00 Metoprolol Succinate (Er) 25 Mg Tab.Er.24h PO DAILY [facility] Multivitamins 1 each 12/24/24 09:00 Multivitamins, Thera 1 Each Tab PO DAILY [facility] Nitroglycerin 0.4 mg 12/23/24 16:52 Nitroglycerin Sl Tabs 0.4 Mg Tab SUBLINGUAL Q5M PRN Chest Pain Spironolactone 25 mg 12/24/24 07:30 12/24/24 07:47 Spironolactone 25 Mg Tab PO 25 mg W/BRKFST DORINA Administration Tamsulosin HCl 0.4 mg 12/23/24 21:00 12/23/24 21:38 Tamsulosin 0.4 Mg Cap.Er.24h PO 0.4 mg BID DORINA Administration Intake and Output 12/23/24 12/24/24 12/24/24 22:59 06:59 14:59 Other: Weight 76.657 kg 12/24/24 07:37
--- NOTE | 2024-12-24 11:56 | P.CRDCN ---
History of Present Illness Consult date: 12/24/24 History of present illness: This is a 73-year-old male patient of Dr. Richard Leach with past medical history of coronary artery disease, chronic systolic heart failure, hypertension. We have been asked to evaluate the patient for NSTEMI. Patient states he went to the hospital because of difficulty with his balance. He states he felt like he was going to fall over and had loss of balance but did not have any falls and no loss of consciousness. He states that his vision is fine during the episodes. He has no other symptoms. Patient apparently presented to [facility]. Patient has been started on a heparin drip. Patient is seen today in the emergency center waiting for a bed on the cardiac stepdown unit. Blood pressure 110/67, heart rate 63, pulse ox 90% on room air. -EKG: Sinus rhythm, poor R wave progression, LAD HUD so I want to keep him until tomorrow yet thank you thank shoot -Chest x-ray: No acute process. -Laboratory studies: Troponin 0.123, 0.12, 0.11. BUN 26, creatinine 0.78. WBC 5.1, hemoglobin 15. -Home cardiac medications: Farxiga 10 mg daily, Lasix 40 mg daily, metoprolol succinate 25 mg daily, spironolactone 25 mg daily. -Event monitor performed 06/25/2024 - 07/01/2024 revealed sinus rhythm average heart rate 70, minimum 49 and maximum 138. SVE burden 0.49%. PVC burden 0.62%. -Lexiscan Cardiolite stress test performed in the office on 07/01/2024 was negative stress test by EKG criteria. Abnormal nuclear scan showing evidence of prior inferior wall myocardial infarction with mild LV dysfunction without ischemia. Review Of Systems: At the time of my exam: CONSTITUTIONAL: Denies fever or chills. HEENT: Denies blurred vision, vision changes, or eye pain. Denies hemoptysis CARDIOVASCULAR: Denies chest pain. Denies orthopnea. Denies PND. Denies palpitations RESPIRATORY: Denies shortness of breath. GASTROINTESTINAL: Denies abdominal pain. Denies nausea or vomiting. HEMATOLOGIC: Denies bleeding disorders. GENITOURINARY: Denies any blood in urine. SKIN: Denies puritis. Denies rash. Physical examination: Gen: This is 73-year-old male in no acute distress VS: reviewed HEENT: Head is atraumatic, normocephalic. Pupils equal, round. Sclerae is anicteric. NECK: Supple. No JVD. LUNGS: Clear to auscultation. No wheezes or rhonchi. No intercostal retractions. HEART: Regular rate and rhythm. No murmur. ABDOMEN: Soft No tenderness. EXTREMITIES: No pedal edema. No calf tenderness. NEUROLOGICAL: Patient is awake, alert and oriented x3. Assessment: Presented with balance issue, no syncope and without any other symptoms Elevated troponin with flat pattern, unclear significance, type I or type II. Bradycardia History of coronary artery disease Chronic systolic heart failure Hypertension History of prostate cancer Plan: Resume patient's home cardiac medications with the following changes: Decrease metoprolol to 12.5 mg daily Continue telemetry monitoring Discontinue heparin drip Obtain 2-D echocardiogram and Doppler study to assess cardiac structure and function At the time of discharge, patient will follow-up in the office with Dr. Richard Leach for outpatient stress testing. Thank you kindly for this consultation. Nurse practitioner note has been reviewed, I agree with documented findings and plan of care. Patient was seen and examined. Past Medical History Past Medical History: Hypertension, Osteoarthritis (OA) Additional Past Medical History / Comment(s): hx of benign tumors on thyroid., hx of cellulitis leg & foot., covid 06/2021 with antibody tx., curvature of spine & back pain., urine incontinence, cancer of prostate., Pt states he had 2 episodes where he felt "disoriented" and was taken to the hospital[facility] in mar 2022- was told he had an infection and diagnosed with prostate cancer. History of Any Multi-Drug Resistant Organisms: None Reported Past Surgical History: Appendectomy, Joint Replacement, Orthopedic Surgery, Tonsillectomy Additional Past Surgical History / Comment(s): .1976 knee surgery, reilly total knees x2 each., 1998 thyroid tumors removed., prostate surgery.,"microwave" "prostate procedure Past Anesthesia/Blood Transfusion Reactions: No Reported Reaction Smoking Status: Never smoker - Past Family History Mother Family Medical History: No Reported History Father Family Medical History: Deep Vein Thrombosis (DVT) Medications and Allergies Home Medications Medication Instructions Recorded Confirmed Type Ascorbic Acid [Vitamin C] 1,000 mg PO BID 08/23/22 12/23/24 History Hydroxychloroquine Sulfate 200 mg PO BID 08/23/22 12/23/24 History [Plaquenil] Mv-Min/Folic/K1/Lycopen/Lutein 1 tab PO DAILY 08/23/22 12/23/24 History [Centrum Silver Men Tablet] Cholecalciferol [Vitamin D3 (125 125 mcg PO DAILY 12/23/24 12/23/24 History Mcg = 5000 Iu)] Dapagliflozin Propanediol [Farxiga] 10 mg PO DAILY 12/23/24 12/23/24 History Furosemide [Lasix] 40 mg PO DAILY 12/23/24 12/23/24 History Ibuprofen [Motrin] 400 mg PO TID 12/23/24 12/23/24 History Metoprolol Succinate (ER) [Toprol 25 mg PO DAILY 12/23/24 12/23/24 History Xl] Spironolactone [Aldactone] 25 mg PO W/BRKFST 12/23/24 12/23/24 History Tamsulosin [Flomax] 0.4 mg PO BID 12/23/24 12/23/24 History tadalafiL [Cialis] 5 mg PO DAILY 12/23/24 12/23/24 History Allergies Allergy/AdvReac Type Severity Reaction Status Date / Time prednisone Allergy Unknown Rash/Hives Verified 12/23/24 19:01 Physical Exam Vitals: Vital Signs Temp Pulse Pulse Resp BP BP Pulse Ox 12/24/24 09:38 17 12/24/24 09:00 63 17 110/67 12/24/24 08:00 16 12/24/24 07:45 111 H 17 117/88 98 12/24/24 06:00 47 L 15 104/83 98 12/24/24 05:00 51 L 15 104/64 97 12/24/24 04:00 52 L 16 105/67 97 12/24/24 03:30 99 18 122/94 97 12/24/24 03:00 48 L 16 93/72 96 12/24/24 02:00 43 L 16 118/64 94 L 12/24/24 01:00 62 16 101/79 96 12/24/24 00:00 49 L 16 118/88 95 12/23/24 23:00 81 16 100/63 96 12/23/24 21:00 16 118/88 98 12/23/24 20:00 53 L 14 114/76 97 12/23/24 18:00 98.2 F 54 L 18 109/91 98 Intake and Output 12/23/24 12/24/24 12/24/24 22:59 06:59 14:59 Other: Weight 76.657 kg Results 12/24/24 07:37 12/24/24 07:37 Cardiac Enzymes 12/23/24 12/23/24 12/24/24 Range/Units 17:30 20:19 00:35 AST (17-59) U/L Troponin I 0.123 H* 0.122 H* 0.112 H* (0.000-0.034) ng/mL 12/24/24 Range/Units 07:37 AST 37 (17-59) U/L Troponin I (0.000-0.034) ng/mL Coagulation 12/23/24 12/24/24 12/24/24 Range/Units 20:19 00:35 07:37 APTT 38.1 H 47.2 H 53.1 H (22.0-30.0) sec CBC 12/24/24 Range/Units 07:37 WBC 5.10 (4.50-10.00) 10*3/uL RBC 4.85 (4.40-5.60) 10*6/uL Hgb 15.0 (13.0-17.0) g/dL Hct 46.1 (39.6-50.0) % Plt Count 170 (140-440) 10*3/uL Comprehensive Metabolic Panel 12/24/24 Range/Units 07:37 Sodium 140 (137-145) mmol/L Potassium 4.6 (3.5-5.1) mmol/L Chloride 110 H (98-107) mmol/L Carbon Dioxide 24 (22-30) mmol/L BUN 26 H (9-20) mg/dL Creatinine 0.78 (0.66-1.25) mg/dL Glucose 93 (74-99) mg/dL Calcium 11.0 H (8.4-10.2) mg/dL AST 37 (17-59) U/L ALT 31 (4-49) U/L Alkaline Phosphatase 113 (38-126) U/L Total Protein 6.5 (6.3-8.2) g/dL Albumin 4.0 (3.5-5.0) g/dL Current Medications Generic Name Dose Route Start Last Admin Trade Name Freq PRN Reason Stop Dose Admin Ascorbic Acid 1,000 mg 12/23/24 21:00 12/24/24 09:28 Ascorbic Acid 500 Mg Tab PO 1,000 mg BID DORINA Administration Aspirin 81 mg 12/24/24 09:00 12/24/24 09:29 Aspirin 81 Mg PO 81 mg DAILY DORINA Administration Atorvastatin Calcium 40 mg 12/23/24 21:00 12/23/24 21:38 Atorvastatin 40 Mg Tab PO 40 mg HS DORINA Administration Cholecalciferol 125 mcg 12/24/24 09:00 12/24/24 09:29 Cholecalciferol 125 Mcg (5000 Iu) Tablet PO 125 mcg DAILY DORINA Administration Dapagliflozin 10 mg 12/24/24 09:00 12/24/24 09:28 Dapagliflozin Propanediol 10 Mg Tablet PO 10 mg DAILY DORINA Administration Furosemide 40 mg 12/24/24 09:00 12/24/24 09:28 Furosemide 40 Mg Tab PO 40 mg DAILY DORINA Administration Hydroxychloroquine Sulfate 200 mg 12/23/24 21:00 12/24/24 09:29 Hydroxychloroquine Sulfate 200 Mg Tab PO 200 mg BID DORINA Administration Heparin Sodium/Sodium Chloride 250 mls @ 9.199 mls/hr 12/23/24 19:00 12/23/24 18:17 25,000 unit/ Sodium Chloride IV 12 units/kg/hr .Q24H DORINA 9.199 mls/hr Administration Protocol 12 UNITS/KG/HR Multivitamins 1 each 12/24/24 09:00 12/24/24 09:28 Multivitamins, Thera 1 Each Tab PO 1 each DAILY DORINA Administration Nitroglycerin 0.4 mg 12/23/24 16:52 Nitroglycerin Sl Tabs 0.4 Mg Tab SUBLINGUAL Q5M PRN Chest Pain Spironolactone 25 mg 12/24/24 07:30 12/24/24 07:47 Spironolactone 25 Mg Tab PO 25 mg W/BRKFST DORINA Administration Tamsulosin HCl 0.4 mg 12/23/24 21:00 12/24/24 09:29 Tamsulosin 0.4 Mg Cap.Er.24h PO 0.4 mg BID DORINA Administration Intake and Output 12/23/24 12/24/2425 22:59 06:59 14:59 Other: Weight 76.657 kg 12/24/24 07:37 12/24/24 07:37
--- NOTE | 2024-12-24 14:03 | P.PN ---
Subjective Progress Note Date: 12/24/24 Hospital course: Patient is a very pleasant 73-year-old male with a past medical history of prostate cancer status post prostatectomy followed by radiation treatment, skin cancer status post removal, colon cancer status post bowel resection, hypertension, chronic urinary and bowel incontinence, and recently diagnosed heart failure. 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 He presented to our facility as a transfer from [facility] where he initially presented with a chief complaint of dizziness and balance issues. Patient underwent evaluation at their facility. Vital signs upon arrival to their facility show blood pressure 129/68, heart rate 101, respiratory rate 18, and SpO2 of 98% on room air. CT head without contrast was completed negative for a cute intercranial process showing nonspecific white matter changes likely secondary to chronic small vessel ischemic disease. Labs completed and reviewed. CBC showing WBC count of 5.37, hemoglobin of 15.0, and platelet count of 196. BMP showing sodium 139, potassium 4.9, chloride of 107, bicarb of 27, BUN of 32.4, creatinine 1.08, and GFR of 71.04. Calcium 10.6, . Blood glucose 120. Liver profile unremarkable. Magnesium 2.8. Procalcitonin negative at 0.07. TSH 1.19. Lactic acid was 1.2 troponin was elevated at 0.125. EKG revealing sinus mechanism with T wave inversion in lateral leads I and aVL. Patient was given aspirin 325 mg x 1 dose, Plavix 75 mg x 1 dose and Lovenox 80 mg subcutaneously and transferred to our facility for higher level of care. Upon arrival to our facility, patient again underwent evaluation in the emergency department. Vital signs completed and reviewed. Blood pressure 109/91, heart rate 54, respiratory rate 18, temp 98.2 F, and SpO2 of 98% on room air. EKG upon arrival showing sinus bradycardia at 51 bpm again with T wave inversion in lateral leads I and aVL. Chest x-ray completed negative for acute cardiopulmonary process. Patient was started on low intensity heparin infusion for treatment of NSTEMI and admitted under our services with con sultation to cardiology.Troponins were trended and flat resulting at 0.123, 0.122, and 0.112. Physical exam: Patient was seen and fully evaluated at bedside this morning. He currently reports being free from any complaints. He reports his dizziness and balance issues fully resolved. He denies having any further complaints at this time including headache, chest pain, palpitations, shortness of breath, exertional dyspnea, or experiencing any numbness/tingling/weakness in his extremities. Vital signs reviewed and stable. General: Nontoxic, no distress and appears stated age. Derm: Skin warm and dry, normal coloration for ethnicity. Head: Atraumatic, normocephalic and symmetric. Eyes: EOM's intact, no lid lag, and anicteric sclera Mouth: no lip lesions, mucus membranes moist Cardiovascular: regular rate and rhythm with normal S1S2, no murmur, positive posterior tibial pulses bilaterally, and cap refill < 2 seconds. Lungs: Respirations even, regular, and unlabored on room air. Lungs CTA bilaterally, no rhonchi, no rales, no wheezing, and no accessory muscle usage. Abdominal: soft, nontender to palpation, no guarding, no appreciable organomegaly Ext: ROM intact. No gross muscle atrophy, no edema, no contractures Neuro: Speech clear, face symmetrical and CN II-XII grossly intact with no noted focal neuro deficits Psych: Alert and oriented to person, place, time, and situation. Appropriate and pleasant affect. Assessment and Plan of Care: Elevated troponins, flat suspect type II NSTEMI Symptomatic bradycardia resulting in dizziness upon standing History of hypertension History of congestive heart failure, unknown type -Cardiology following, discussed plan of care with cardiac KEYBOARD INSTRUMENT TUNER standing metoprolol being decreased to 12.5 mg daily, awaiting echocardiogram results and additional recommendations forthcoming. -Continue low intensity heparin infusion with close monitoring of PTT every 6 hours for goal therapeutic range of 45 to 79 seconds. PTT currently therapeutic at 53.1. -Telemetry monitoring -Troponins were trended and flat resulting at 0.123, 0.122, and 0.112. -Continue cardiac medication regimen with aspirin 81 mg daily, atorvastatin 40 mg nightly, Farxiga 10 mg daily, Lasix 40 mg daily, Plaquenil 200 mg twice daily, metoprolol 12.5 mg daily, and Aldactone 25 mg daily. -Orthostatic vitals -Consulted Physical and Occupational Therapy for evaluation -Echocardiogram Hypercalcemia Hypermagnesemia -Patient started on gentle IV fluid hydration with 0.9% normal saline at 75 cc/h. Will monitor for resolution with repeat a.m. labs. History of prostate cancer with chronic urinary incontinence History of colon cancer status postsurgical resection with chronic bowel incontinence -Continue Flomax 0.4 mg twice daily. -Outpatient follow-up with age-appropriate cancer screenings.. Data and imaging reviewed: - Morning labs completed and reviewed. CBC unremarkable with hemoglobin of 15.0 and platelet count of 170. Coagulation profile showing therapeutic PTT of 53.1. BMP showing mild hyper BMP showing hyperchloremia with chloride of 110 and mild prerenal azotemia with BUN of 26 otherwise normal findings. Blood glucose was 93. Calcium was elevated at 11.0 and magnesium also elevated at 2.7. Troponins were trended and flat resulting at 0.123, 0.122, and 0.112. Labs reviewed. Blood pressure 110/67, heart rate 63, respiratory rate 17, and SpO2 of 96% on room air. CODE STATUS: Full code DVT prophylaxis: Low intensity heparin infusion Discussed with: Patient, RN, and cardiology KEYBOARD INSTRUMENT TUNER Anticipated discharge date: Pending clinical course Anticipated discharge place: Home Patient was seen independently by Nurse Practitioner. This document was prepared using [employer] dictation software. Please allow for errors in footwear stitcher while rare they do occur. Yung Guzmán, DANIELA rendered care for this patient independently, reviewed the findings and plan as documented in the note above and agree with plan. I did not physically speak with or examine the patient on this date Objective - Vital Signs Vital signs: Vital Signs Temp 98.2 F 12/23/24 18:00 Pulse 111 H 12/24/24 07:45 Resp 17 12/24/24 07:45 BP 117/88 12/24/24 07:45 Pulse Ox 98 12/24/24 07:45 FiO2 Intake & Output 12/23/24 12/24/24 12/24/24 18:59 06:59 18:59 Weight 76.657 kg - Labs CBC & Chem 7: 12/24/24 07:37 12/24/24 07:37 Labs: Abnormal Lab Results - Last 24 Hours (Table) 12/23/24 12/23/24 12/23/24 Range/Units 17:30 20:19 20:19 APTT 38.1 H (22.0-30.0) sec Troponin I 0.123 H* 0.122 H* (0.000-0.034) ng/mL 12/24/24 12/24/24 Range/Units 00:35 00:35 APTT 47.2 H (22.0-30.0) sec Troponin I 0.112 H* (0.000-0.034) ng/mL
[2024-12-24] MEDS: SODIUM CHLORIDE 0.9% 1,000 ML IV SCH (15:07)
[2024-12-24 16:48] LABS: Chol/HDL Ratio 2.77 Ratio; LDL Cholesterol,Calculated 80.7 mg/dL (0.0-131.0)
[2024-12-25 07:07] LABS: HCT 48.9 % (39.6-50.0); HGB 15.9 g/dL (13.0-17.0); MCH 30.4 pg (27.0-32.0); MCHC 32.5 g/dL (32.0-37.0); MCV 93.5 fL (80.0-97.0); Mean Platelet Volume 9.3 fL (9.5-12.2); Platelet Count 213 10*3/uL (140-440); RBC 5.23 10*6/uL (4.40-5.60); RDW 13.5 % (11.5-14.5); WBC 5.42 10*3/uL (4.50-10.00)
[2024-12-25 07:29] LABS: ALT 35 U/L (4-49); AST 37 U/L (17-59); African American GFR (CKD) 86 (>60 ml/min/1.73 sqM); Albumin 4.1 g/dL (3.5-5.0); Alkaline Phosphatase 124 U/L (38-126); Anion Gap 6 mmol/L; Blood Urea Nitrogen 29 mg/dL (9-20); Calcium 11.4 mg/dL (8.4-10.2); Carbon Dioxide 29 mmol/L (22-30); Chloride 103 mmol/L (98-107); Glucose 87 mg/dL (74-99); Magnesium 2.6 mg/dL (1.6-2.3); Non-African American GFR(CKD) 75 (>60 ml/min/1.73 sqM); Potassium 4.6 mmol/L (3.5-5.1); Sodium 138 mmol/L (137-145); Total Bilirubin 0.4 mg/dL (0.2-1.3); Total Protein 6.8 g/dL (6.3-8.2)
[2024-12-25] MEDS: METOPROLOL SUCCINATE (ER) 25 MG TAB.ER.24H PO SCH (09:50)
--- NOTE | 2024-12-25 11:20 | P.PN ---
Subjective Progress Note Date: 12/25/24 Hospital course: Patient is a very pleasant 73-year-old male with a past medical history of prostate cancer status post prostatectomy followed by radiation treatment, skin cancer status post removal, colon cancer status post bowel resection, hypertension, chronic urinary and bowel incontinence, and recently diagnosed heart failure. 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 He presented to our facility as a transfer from [facility] where he initially presented with a chief complaint of dizziness and balance issues. Patient underwent evaluation at their facility. Vital signs upon arrival to their facility show blood pressure 129/68, heart rate 101, respiratory rate 18, and SpO2 of 98% on room air. CT head without contrast was completed negative for a cute intercranial process showing nonspecific white matter changes likely secondary to chronic small vessel ischemic disease. Labs completed and reviewed. CBC showing WBC count of 5.37, hemoglobin of 15.0, and platelet count of 196. BMP showing sodium 139, potassium 4.9, chloride of 107, bicarb of 27, BUN of 32.4, creatinine 1.08, and GFR of 71.04. Calcium 10.6, . Blood glucose 120. Liver profile unremarkable. Magnesium 2.8. Procalcitonin negative at 0.07. TSH 1.19. Lactic acid was 1.2 troponin was elevated at 0.125. EKG revealing sinus mechanism with T wave inversion in lateral leads I and aVL. Patient was given aspirin 325 mg x 1 dose, Plavix 75 mg x 1 dose and Lovenox 80 mg subcutaneously and transferred to our facility for higher level of care. Upon arrival to our facility, patient again underwent evaluation in the emergency department. Vital signs completed and reviewed. Blood pressure 109/91, heart rate 54, respiratory rate 18, temp 98.2 F, and SpO2 of 98% on room air. EKG upon arrival showing sinus bradycardia at 51 bpm again with T wave inversion in lateral leads I and aVL. Chest x-ray completed negative for acute cardiopulmonary process. Patient was started on low intensity heparin infusion for treatment of NSTEMI and admitted under our services with con sultation to cardiology.Troponins were trended and flat resulting at 0.123, 0.122, and 0.112. Physical exam: Patient was seen and fully evaluated at bedside this morning. He currently reports that he remains free from any further episodes of dizziness or balance issues and denies any new complaints. He continues to have baseline bradycardia with a documented two isolated episodes of tachycardia. Since admission patient has denied and continues to deny experiencing any chest pain, palpitations, shortness of breath, or experiencing any numbness/tingling/weakness in his extremities. Vital signs reviewed and stable. General: Nontoxic, no distress and appears stated age. Derm: Skin warm and dry, normal coloration for ethnicity. Head: Atraumatic, normocephalic and symmetric. Eyes: EOM's intact, no lid lag, and anicteric sclera Mouth: no lip lesions, mucus membranes moist Cardiovascular: regular rate and rhythm with normal S1S2, no murmur, positive posterior tibial pulses bilaterally, and cap refill < 2 seconds. Lungs: Respirations even, regular, and unlabored on room air. Lungs CTA bilaterally, no rhonchi, no rales, no wheezing, and no accessory muscle usage. Abdominal: soft, nontender to palpation, no guarding, no appreciable organomegaly Ext: ROM intact. No gross muscle atrophy, no edema, no contractures Neuro: Speech clear, face symmetrical and CN II-XII grossly intact with no noted focal neuro deficits Psych: Alert and oriented to person, place, time, and situation. Appropriate and pleasant affect. Assessment and Plan of Care: Elevated troponins, flat suspect type II NSTEMI Symptomatic bradycardia resulting in dizziness upon standing History of hypertension History of congestive heart failure, unknown type -Cardiology following, decreased metoprolol from previous 25 mg daily down to 12.5 mg daily and discontinued heparin infusion. -Telemetry monitoring -Troponins were trended and flat resulting at 0.123, 0.122, and 0.112. -Continue cardiac medication regimen with aspirin 81 mg daily, atorvastatin 40 mg nightly, Farxiga 10 mg daily, Lasix 40 mg daily, Plaquenil 200 mg twice daily, metoprolol 12.5 mg daily, and Aldactone 25 mg daily. -Orthostatic vitals to be completed -Consulted Physical and Occupational Therapy for evaluation -Awaiting completion of Echocardiogram Hypercalcemia Hypermagnesemia -Discontinued vitamin D supplement along with daily multivitamin and placed order for PTH and vitamin D levels. Continue with gentle IV fluid hydration with 0.9% normal saline at increased rate of 100 cc/h. Will monitor for resolution with repeat a.m. labs, if no improvement or further worsening addit ional orders to be placed at that time. History of prostate cancer with chronic urinary incontinence History of colon cancer status postsurgical resection with chronic bowel incontinence -Continue Flomax 0.4 mg twice daily. -Outpatient follow-up with age-appropriate cancer screenings.. Data and imaging reviewed: - Morning labs completed and reviewed. CBC remains unremarkable exception of low MPV of 9.3. BMP showing prerenal azotemia with BUN of 29 creatinine 0.9 GFR of 86. Calcium remains elevated at 11.6 and magnesium of 2.6. Liver profile unremarkable. Labs reviewed. Blood pressure 110/67, heart rate 63, respiratory rate 17, and SpO2 of 96% on room air. CODE STATUS: Full code DVT prophylaxis: Lovenox Discussed with: Patient, RN, and cardiology Anticipated discharge date: Pending clinical course Anticipated discharge place: Home Patient was seen independently by Nurse Practitioner. This document was prepared using [employer] dictation software. Please allow for errors in casing in line feeder while rare they do occur. Yung Guzmán NP rendered care for this patient independently, reviewed the findings and plan as documented in the note above and agree with plan. I did not physically speak with or examine the patient on this date Objective - Vital Signs Vital signs: Vital Signs Temp 97.7 F 12/25/24 04:00 Pulse 112 H 12/25/24 04:00 Resp 17 12/25/24 04:00 BP 110/71 12/25/24 04:00 Pulse Ox 94 L 12/25/24 04:00 FiO2 Intake & Output 12/24/24 12/25/24 12/25/24 18:59 06:59 18:59 Intake Total 806.004 2062 Balance 841.404 2527 Weight 76.657 kg 77 kg Intake: IV 20 Invasive Line 1 10 Invasive Line 2 10 Intake, IV Titration 191.799 Amount Heparin Sod,Pork in 0.45% 191.799 NaCl 25,000 unit In 0.45 % NaCl 1 250ml.bag @ 12 UNITS/KG/HR 9.199 mls/hr IV .Q24H DORINA Rx#: [id number] Oral 237 1100 Other: Voiding Method Toilet Urinal # Voids 3 - Labs CBC & Chem 7: 12/25/24 05:59 12/25/24 05:59 Labs: Abnormal Lab Results - Last 24 Hours (Table) 12/24/24 12/25/24 12/25/24 Range/Units 07:37 05:59 05:59 MPV 9.3 L (9.5-12.2) fL Chloride 110 H (98-107) mmol/L BUN 26 H 29 H (9-20) mg/dL Calcium 11.0 H 11.4 H (8.4-10.2) mg/dL Magnesium 2.7 H 2.6 H (1.6-2.3) mg/dL
[2024-12-25] MEDS: ENOXAPARIN 40 MG/0.4 ML SYRINGE SQ SCH (12:40)
--- NOTE | 2024-12-25 16:56 | P.PN ---
Subjective Progress Note Date: 12/25/24 This is a 73-year-old male patient of Dr. Richard Leach with past medical history of coronary artery disease, chronic systolic heart failure, hypertension. We have been asked to evaluate the patient for NSTEMI. Patient states he went to the hospital because of difficulty with his balance. He states he felt like he was going to fall over and had loss of balance but did not have any falls and no loss of consciousness. He states that his vision is fine during the episodes. He has no other symptoms. Patient apparently presented to [facility]. Patient has been started on a heparin drip. Patient is seen today in the emergency center waiting for a bed on the cardiac stepdown unit. Blood pressure 110/67, heart rate 63, pulse ox 90% on room air. -EKG: Sinus rhythm, poor R wave progression, LAD HUD so I want to keep him until tomorrow yet thank you thank shoot -Chest x-ray: No acute process. -Laboratory studies: Troponin 0.123, 0.12, 0.11. BUN 26, creatinine 0.78. WBC 5.1, hemoglobin 15. -Home cardiac medications: Farxiga 10 mg daily, Lasix 40 mg daily, metoprolol succinate 25 mg daily, spironolactone 25 mg daily. -Event monitor performed 06/25/2024 - 07/01/2024 revealed sinus rhythm average heart rate 70, minimum 49 and maximum 138. SVE burden 0.49%. PVC burden 0.62%. -Lexiscan Cardiolite stress test performed in the office on 07/01/2024 was negative stress test by EKG criteria. Abnormal nuclear scan showing evidence of prior inferior wall myocardial infarction with mild LV dysfunction without ischemia. Progress note 12/25/2024 BP 131/82, heart rate 75 bpm LDL 80, TG 60, total cholesterol 145, He denies any chest pain chest pressure shortness of breath at this time. He reports that his lightheadedness and dizziness is got better. Physical examination: Gen: This is 73-year-old male in no acute distress VS: reviewed HEENT: Head is atraumatic, normocephalic. Pupils equal, round. Sclerae is anicteric. NECK: Supple. No JVD. LUNGS: Clear to auscultation. No wheezes or rhonchi. No intercostal retractions. HEART: Regular rate and rhythm. No murmur. ABDOMEN: Soft No tenderness. EXTREMITIES: No pedal edema. No calf tenderness. NEUROLOGICAL: Patient is awake, alert and oriented x3. Assessment: Presented with balance issue, no syncope and without any other symptoms Elevated troponin with flat pattern, unclear significance, type I or type II. Bradycardia History of coronary artery disease Chronic systolic heart failure Hypertension History of prostate cancer Plan: Continue aspirin, Lipitor, Farxiga, Aldactone Discontinue Lasix. Start losartan 25 mg daily, continue metoprolol at 12.5 mg daily Obtain 2-D echocardiogram and Doppler study to assess cardiac structure and function. Echo still pending as echo department is short staffed and not avail able on the weekends. Perform orthostatic vital signs tomorrow Check for NT-proBNP TSH, A1c, At the time of discharge, patient will follow-up in the office with Dr. Richard Leach for outpatient stress testing. Objective - Vital Signs Vital signs: Vital Signs Temp 97.4 F L 12/25/24 15:55 Pulse 75 12/25/24 15:55 Resp 16 12/25/24 15:55 BP 131/82 12/25/24 15:55 Pulse Ox 97 12/25/24 15:55 FiO2 Intake & Output 12/24/24 12/25/24 12/25/24 18:59 06:59 18:59 Intake Total 512.700 1471 400 Balance 813.126 8846 400 Weight 76.657 kg 77 kg Intake: IV 20 40 Invasive Line 1 10 20 Invasive Line 2 10 20 Intake, IV Titration 191.799 Amount Heparin Sod,Pork in 0.45% 191.799 NaCl 25,000 unit In 0.45 % NaCl 1 250ml.bag @ 12 UNITS/KG/HR 9.199 mls/hr IV .Q24H DORINA Rx#: [id number] Oral 237 1100 360 Other: Voiding Method Toilet Toilet Urinal Urinal # Voids 3 1 - Labs CBC & Chem 7: 12/25/24 05:59 12/25/24 05:59 Labs: Abnormal Lab Results - Last 24 Hours (Table) 12/25/24 12/25/24 Range/Units 05:59 05:59 MPV 9.3 L (9.5-12.2) fL BUN 29 H (9-20) mg/dL Calcium 11.4 H (8.4-10.2) mg/dL Magnesium 2.6 H (1.6-2.3) mg/dL
[2024-12-25 19:22] LABS: Magnesium 2.4 mg/dL (1.6-2.3)
[2024-12-25 19:32] LABS: NT-Pro-B-Type Natriuretic Pept 918 pg/mL
[2024-12-26 07:23] LABS: Mean Platelet Volume 9.7 fL (9.5-12.2); Platelet Count 205 10*3/uL (140-440)
[2024-12-26] MEDS: LOSARTAN 25 MG TAB PO SCH (08:36)
--- NOTE | 2024-12-26 10:50 | P.PN ---
Subjective Progress Note Date: 12/26/24 Hospital course: Patient is a very pleasant 73-year-old male with a past medical history of prostate cancer status post prostatectomy followed by radiation treatment, skin cancer status post removal, colon cancer status post bowel resection, hypertension, chronic urinary and bowel incontinence, and recently diagnosed heart failure. 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 He presented to our facility as a transfer from [facility] where he initially presented with a chief complaint of dizziness and balance issues. Patient underwent evaluation at their facility. Vital signs upon arrival to their facility show blood pressure 129/68, heart rate 101, respiratory rate 18, and SpO2 of 98% on room air. CT head without contrast was completed negative for a cute intercranial process showing nonspecific white matter changes likely secondary to chronic small vessel ischemic disease. Labs completed and reviewed. CBC showing WBC count of 5.37, hemoglobin of 15.0, and platelet count of 196. BMP showing sodium 139, potassium 4.9, chloride of 107, bicarb of 27, BUN of 32.4, creatinine 1.08, and GFR of 71.04. Calcium 10.6, . Blood glucose 120. Liver profile unremarkable. Magnesium 2.8. Procalcitonin negative at 0.07. TSH 1.19. Lactic acid was 1.2 troponin was elevated at 0.125. EKG revealing sinus mechanism with T wave inversion in lateral leads I and aVL. Patient was given aspirin 325 mg x 1 dose, Plavix 75 mg x 1 dose and Lovenox 80 mg subcutaneously and transferred to our facility for higher level of care. Upon arrival to our facility, patient again underwent evaluation in the emergency department. Vital signs completed and reviewed. Blood pressure 109/91, heart rate 54, respiratory rate 18, temp 98.2 F, and SpO2 of 98% on room air. EKG upon arrival showing sinus bradycardia at 51 bpm again with T wave inversion in lateral leads I and aVL. Chest x-ray completed negative for acute cardiopulmonary process. Patient was started on low intensity heparin infusion for treatment of NSTEMI and admitted under our services with con sultation to cardiology.Troponins were trended and flat resulting at 0.123, 0.122, and 0.112. Physical exam: Patient was seen and fully evaluated at bedside this morning. He continues to report remaining free from any further episodes of dizziness or balance issues and denies any new complaints. He expresses frustration over extended hospital stay due to awaiting echocardiogram to be completed. Since admission patient has denied and continues to deny experiencing any chest pain, palpitations, shortness of breath, or experiencing any numbness/tingling/weakness in his ex tremities. Vital signs reviewed and stable. General: Nontoxic, no distress and appears stated age. Derm: Skin warm and dry, normal coloration for ethnicity. Head: Atraumatic, normocephalic and symmetric. Eyes: EOM's intact, no lid lag, and anicteric sclera Mouth: no lip lesions, mucus membranes moist Cardiovascular: regular rate and rhythm with normal S1S2, no murmur, positive posterior tibial pulses bilaterally, and cap refill < 2 seconds. Lungs: Respirations even, regular, and unlabored on room air. Lungs CTA bilaterally, no rhonchi, no rales, no wheezing, and no accessory muscle usage. Abdominal: soft, nontender to palpation, no guarding, no appreciable organomegaly Ext: ROM intact. No gross muscle atrophy, no edema, no contractures Neuro: Speech clear, face symmetrical and CN II-XII grossly intact with no noted focal neuro deficits Psych: Alert and oriented to person, place, time, and situation. Appropriate and pleasant affect. Assessment and Plan of Care: Elevated troponins, flat suspect type II NSTEMI Symptomatic bradycardia resulting in dizziness upon standing History of hypertension History of congestive heart failure, unknown type -Cardiology following, discussed plan of care with supervisor fishing, Dr. Ferraro. -Telemetry monitoring -Troponins were trended and flat resulting at 0.123, 0.122, and 0.112. -Continue cardiac medication regimen with aspirin 81 mg daily, atorvastatin 40 mg nightly, Farxiga 10 mg daily, Lasix 40 mg daily, Plaquenil 200 mg twice daily, metoprolol 12.5 mg daily, and Aldactone 25 mg daily. -Orthostatic vitals were negative -Consulted Physical and Occupational Therapy for evaluation -Awaiting completion of Echocardiogram Hypercalcemia Hypermagnesemia -Discontinued vitamin D supplement along with daily multivitamin and placed order for PTH and vitamin D levels. Continue with gentle IV fluid hydration with 0.9% normal saline at increased rate of 100 cc/h. Will monitor for resolution with repeat a.m. labs, if no improvement or further worsening additional orders to be placed at that time. History of prostate cancer with chronic urinary incontinence History of colon cancer status postsurgical resection with chronic bowel incontinence -Continue Flomax 0.4 mg twice daily. -Outpatient follow-up with age-appropriate cancer screenings.. Data and imaging reviewed: -Labs completed and reviewed. CBC remains unremarkable exception of low MPV of 9.3. BMP showing prerenal azotemia with BUN of 29 creatinine 0.9 GFR of 86. Calcium remains elevated at 11.6 and magnesium of 2.6. Liver profile unremarkable. Vital signs reviewed.. Blood pressure 118/75, heart rate 63, respiratory rate 16, and SpO2 of 98% on room air. Orthostatic vitals negative for orthostatic hypotension showing blood pressure supine 119/75, sitting 109/69, and standing 110/74. CODE STATUS: Full code DVT prophylaxis: Lovenox Discussed with: Patient, RN, and cardiology Anticipated discharge date: Pending clinical course, awaiting completion of echocardiogram Anticipated discharge place: Home Patient was seen independently by Nurse Practitioner. This document was prepared using [employer] dictation software. Please allow for errors in ski maker while rare they do occur. Yung Guzmán NP rendered care for this patient independently, reviewed the findings and plan as documented in the note above and agree with plan. I did not physically speak with or examine the patient on this date. Objective - Vital Signs Vital signs: Vital Signs Temp 97.7 F 12/26/24 04:00 Pulse 61 12/26/24 04:00 Resp 16 12/26/24 04:00 BP 111/75 12/26/24 04:00 Pulse Ox 96 12/26/24 04:00 FiO2 Intake & Output 12/25/24 12/26/24 12/26/24 18:59 06:59 18:59 Intake Total 560 580 Output Total 540 Balance 560 40 Weight 77.5 kg Intake: IV 20 40 Invasive Line 1 20 20 Invasive Line 2 20 Oral 540 540 Output: Urine 540 Other: Voiding Method Toilet Toilet Urinal Urinal # Voids 1 - Labs CBC & Chem 7: 12/26/24 06:35 12/25/24 05:59 Labs: Abnormal Lab Results - Last 24 Hours (Table) 12/25/24 Range/Units 18:13 Magnesium 2.4 H (1.6-2.3) mg/dL
--- NOTE | 2024-12-26 16:50 | P.PN ---
Subjective Progress Note Date: 12/26/24 This is a 73-year-old male patient of Dr. Richard Leach with past medical history of coronary artery disease, chronic systolic heart failure, hypertension. We have been asked to evaluate the patient for NSTEMI. Patient states he went to the hospital because of difficulty with his balance. He states he felt like he was going to fall over and had loss of balance but did not have any falls and no loss of consciousness. He states that his vision is fine during the episodes. He has no other symptoms. Patient apparently presented to [facility]. Patient has been started on a heparin drip. Patient is seen today in the emergency center waiting for a bed on the cardiac stepdown unit. Blood pressure 110/67, heart rate 63, pulse ox 90% on room air. -EKG: Sinus rhythm, poor R wave progression, LAD HUD so I want to keep him until tomorrow yet thank you thank shoot -Chest x-ray: No acute process. -Laboratory studies: Troponin 0.123, 0.12, 0.11. BUN 26, creatinine 0.78. WBC 5.1, hemoglobin 15. -Home cardiac medications: Farxiga 10 mg daily, Lasix 40 mg daily, metoprolol succinate 25 mg daily, spironolactone 25 mg daily. -Event monitor performed 06/25/2024 - 07/01/2024 revealed sinus rhythm average heart rate 70, minimum 49 and maximum 138. SVE burden 0.49%. PVC burden 0.62%. -Lexiscan Cardiolite stress test performed in the office on 07/01/2024 was negative stress test by EKG criteria. Abnormal nuclear scan showing evidence of prior inferior wall myocardial infarction with mild LV dysfunction without ischemia. Progress note 12/25/2024 BP 131/82, heart rate 75 bpm He denies any chest pain chest pressure shortness of breath at this time. He reports that his lightheadedness and dizziness is got better. 12/27/2023 Patient is doing well from cardiovascular standpoint. Hemodynamically stable Denies any chest pain chest pressure shortness of breath Physical examination: Gen: This is 73-year-old male in no acute distress VS: reviewed HEENT: Head is atraumatic, normocephalic. Pupils equal, round. Sclerae is anicteric. NECK: Supple. No JVD. LUNGS: Clear to auscultation. No wheezes or rhonchi. No intercostal retractions. HEART: Regular rate and rhythm. No murmur. ABDOMEN: Soft No tenderness. EXTREMITIES: No pedal edema. No calf tenderness. NEUROLOGICAL: Patient is awake, alert and oriented x3. Assessment: Presented with balance issue, no syncope and without any other symptoms Elevated troponin with flat pattern, unclear significance, type I or type II. Bradycardia History of coronary artery disease Chronic systolic heart failure Hypertension History of prostate cancer Pertinent cardiac testing NT-proBNP 9.8, LDL 80, TG 60, TSH 2.7, A1c 5.7 Orthostatic vital signs were nonrevealing Plan: Continue aspirin, Lipitor, Farxiga, Aldactone Discontinue Lasix. Start losartan 25 mg daily, continue metoprolol at 12.5 mg daily. Hold metoprolol tomorrow for stress test thereafter resume Plan for echo and a treadmill echo stress test tomorrow Obtain 2-D echocardiogram and Doppler study to assess cardiac structure and function. Echo still pending as echo department is short staffed and not available on the weekends. If echo and stress test are within normal limits, consider clearing the patient for discharge with recommended outpatient follow-up with Dr. Leyva Objective - Vital Signs Vital signs: Vital Signs Temp 97.9 F 12/26/24 08:00 Pulse 75 12/26/24 12:00 Resp 16 12/26/24 12:00 BP 107/70 12/26/24 12:00 Pulse Ox 96 12/26/24 12:00 FiO2 Intake & Output 12/25/24 12/26/24 12/26/24 18:59 06:59 18:59 Intake Total 560 580 360 Output Total 540 Balance 560 40 360 Weight 77.5 kg Intake: IV 20 40 Invasive Line 1 20 20 Invasive Line 2 20 Oral 540 540 360 Output: Urine 540 Other: Voiding Method Toilet Toilet Toilet Urinal Urinal Urinal # Voids 1 - Labs CBC & Chem 7: 12/26/24 06:35 12/25/24 05:59 Labs: Abnormal Lab Results - Last 24 Hours (Table) 12/25/24 Range/Units 18:13 Magnesium 2.4 H (1.6-2.3) mg/dL
[2024-12-27 05:54] LABS: HCT 43.7 % (39.6-50.0); HGB 14.6 g/dL (13.0-17.0); MCH 31.1 pg (27.0-32.0); MCHC 33.4 g/dL (32.0-37.0); Mean Platelet Volume 9.2 fL (9.5-12.2); Platelet Count 191 10*3/uL (140-440); RDW 13.3 % (11.5-14.5)
[2024-12-27 06:19] LABS: ALT 42 U/L (4-49); AST 41 U/L (17-59); African American GFR (CKD) 83 (>60 ml/min/1.73 sqM); Albumin 3.7 g/dL (3.5-5.0); Alkaline Phosphatase 104 U/L (38-126); Anion Gap 8 mmol/L; Blood Urea Nitrogen 47 mg/dL (9-20); Calcium 10.9 mg/dL (8.4-10.2); Carbon Dioxide 25 mmol/L (22-30); Chloride 104 mmol/L (98-107); Glucose 92 mg/dL (74-99); Magnesium 2.5 mg/dL (1.6-2.3); Non-African American GFR(CKD) 72 (>60 ml/min/1.73 sqM); Potassium 4.6 mmol/L (3.5-5.1); Sodium 137 mmol/L (137-145); Total Bilirubin 0.7 mg/dL (0.2-1.3); Total Protein 6.2 g/dL (6.3-8.2)
[2024-12-27 09:10] VITALS: RESP 16; TEMP 97.4
[2024-12-27 11:51] VITALS: BP 119/83; PULSE 75
--- NOTE | 2024-12-27 12:23 | P.PN ---
Subjective HISTORY OF PRESENT ILLNESS: This is a 73-year-old male patient of Dr. Richard Leach with past medical history of coronary artery disease, chronic systolic heart failure, hypertension. We have been asked to evaluate the patient for NSTEMI. Patient states he went to the hospital because of difficulty with his balance. He states he felt like he was going to fall over and had loss of balance but did not have any falls and no loss of consciousness. He states that his vision is fine during the episodes. He has no other symptoms. Patient apparently presented to [facility]. Patient has been started on a heparin drip. Patient is seen today in the emergency center waiting for a bed on the cardiac stepdown unit. Blood pressure 110/67, heart rate 63, pulse ox 90% on room air. -EKG: Sinus rhythm, poor R wave progression, LAD HUD so I want to keep him until tomorrow yet thank you thank shoot -Chest x-ray: No acute process. -Laboratory studies: Troponin 0.123, 0.12, 0.11. BUN 26, creatinine 0.78. WBC 5.1, hemoglobin 15. -Home cardiac medications: Farxiga 10 mg daily, Lasix 40 mg daily, metoprolol succinate 25 mg daily, spironolactone 25 mg daily. -Event monitor performed 06/25/2024 - 07/01/2024 revealed sinus rhythm average heart rate 70, minimum 49 and maximum 138. SVE burden 0.49%. PVC burden 0.62%. -Lexiscan Cardiolite stress test performed in the office on 07/01/2024 was negative stress test by EKG criteria. Abnormal nuclear scan showing evidence of prior inferior wall myocardial infarction with mild LV dysfunction without ischemia. Progress note 12/25/2024 BP 131/82, heart rate 75 bpm He denies any chest pain chest pressure shortness of breath at this time. He reports that his lightheadedness and dizziness is got better. 12/26/2024 Patient is doing well from cardiovascular standpoint. Hemodynamically stable Denies any chest pain chest pressure shortness of breath 12/27/2024 Patient examined this morning at bedside. Patient currently denies any chest pain or pressure. He denies shortness of breath. He is scheduled for stress echocardiogram today. PHYSICAL EXAM: VITAL SIGNS: Reviewed. GENERAL: Well-developed in no acute distress. NECK: Supple. No JVD or thyromegaly LUNGS: Respirations even and unlabored. Lungs essentially clear to auscultation bilaterally. HEART: Regular rate and rhythm. S1 and S2 heard. EXTREMITIES: Normal range of motion. No clubbing or cyanosis. Peripheral pulses intact. No lower extremity edema ASSESSMENT: Presented with balance issue, no syncope and without any other symptoms Elevated troponin with flat pattern, unclear significance, type I or type II. Bradycardia History of coronary artery disease Chronic systolic heart failure Hypertension History of prostate cancer PLAN: Continue aspirin, Lipitor, Farxiga, losartan, and Aldactone Patient scheduled for stress echocardiogram today If negative, patient may be discharged home from a cardiac standpoint Patient to follow-up postdischarge in the office with Dr. Leach Nurse practitioner note has been reviewed by physician. Signing provider agrees with the documented findings, assessment, and plan of care documented by TEACHING AIDE as a scribe. Objective - Vital Signs Vital signs: Vital Signs Temp 97.4 F L 12/27/24 08:00 Pulse 75 12/27/24 11:50 Resp 16 12/27/24 11:50 BP 119/83 12/27/24 11:50 Pulse Ox 98 12/27/24 11:50 FiO2 Intake & Output 12/26/24 12/27/24 12/27/24 18:59 06:59 18:59 Intake Total 540 10 Balance 540 10 Weight 76.1 kg Intake: IV 10 Invasive Line 1 10 Oral 540 Other: Voiding Method Toilet Toilet Toilet Urinal # Voids 1 - Labs CBC & Chem 7: 12/27/24 05:16 12/27/24 05:16 Labs: Abnormal Lab Results - Last 24 Hours (Table) 12/27/24 12/27/24 Range/Units 05:16 05:16 MPV 9.2 L (9.5-12.2) fL BUN 47 H (9-20) mg/dL Calcium 10.9 H (8.4-10.2) mg/dL Magnesium 2.5 H (1.6-2.3) mg/dL Total Protein 6.2 L (6.3-8.2) g/dL
--- NOTE | 2024-12-27 12:49 | P.PN ---
Subjective Progress Note Date: 12/27/24 Hospital course: Patient is a very pleasant 73-year-old male with a past medical history of prostate cancer status post prostatectomy followed by radiation treatment, skin cancer status post removal, colon cancer status post bowel resection, hypertension, chronic urinary and bowel incontinence, and recently diagnosed heart failure. He reports he follows with Dr. Leach children's nursery assistant. He presented to our facility as a transfer from [facility] where he initially presented with a chief complaint of dizziness and balance issues. Patient underwent evaluation at their facility. Vital signs upon arrival to their facility show blood pressure 129/68, heart rate 101, respiratory rate 18, and SpO2 of 98% on room air. CT head without contrast was completed negative for a cute intercranial process showing nonspecific white matter changes likely secondary to chronic small vessel ischemic disease. Labs completed and reviewed. CBC showing WBC count of 5.37, hemoglobin of 15.0, and platelet count of 196. BMP showing sodium 139, potassium 4.9, chloride of 107, bicarb of 27, BUN of 32.4, creatinine 1.08, and GFR of 71.04. Calcium 10.6, . Blood glucose 120. Liver profile unremarkable. Magnesium 2.8. Procalcitonin negative at 0.07. TSH 1.19. Lactic acid was 1.2 troponin was elevated at 0.125. EKG revealing sinus mechanism with T wave inversion in lateral leads I and aVL. Patient was given aspirin 325 mg x 1 dose, Plavix 75 mg x 1 dose and Lovenox 80 mg subcutaneously and transferred to our facility for higher level of care. Upon arrival to our facility, patient again underwent evaluation in the emergency department. Vital signs completed and reviewed. Blood pressure 109/91, heart rate 54, respiratory rate 18, temp 98.2 F, and SpO2 of 98% on room air. EKG upon arrival showing sinus bradycardia at 51 bpm again with T wave inversion in lateral leads I and aVL. Chest x-ray completed negative for acute cardiopulmonary process. Patient was started on low intensity heparin infusion for treatment of NSTEMI and admitted under our services with con sultation to cardiology.Troponins were trended and flat resulting at 0.123, 0.122, and 0.112. Physical exam: Patient was seen and fully evaluated at bedside shortly after returning from stress test. Currently denies having any dizziness, lightheadedness, chest pain, palpitations, shortness of breath or experiencing any numbness/tingling/weakness/swelling in his extremities. Discussed with patient pending echocardiogram results and stress echo results possible discharge later today. If stress is positive patient will remain hospitalized for likely cardiac catheterization tomorrow. Patient in agreement with plan of care and denies any further questions, concerns, or needs at this time. Vital signs reviewed and stable. General: Nontoxic, no distress and appears stated age. Derm: Skin warm and dry, normal coloration for ethnicity. Head: Atraumatic, normocephalic and symmetric. Eyes: EOM's intact, no lid lag, and anicteric sclera Mouth: no lip lesions, mucus membranes moist Cardiovascular: regular rate and rhythm with normal S1S2, no murmur, positive posterior tibial pulses bilaterally, and cap refill < 2 seconds. Lungs: Respirations even, regular, and unlabored on room air. Lungs CTA bilaterally, no rhonchi, no rales, no wheezing, and no accessory muscle usage. Abdominal: soft, nontender to palpation, no guarding, no appreciable organomegaly Ext: ROM intact. No gross muscle atrophy, no edema, no contractures Neuro: Speech clear, face symmetrical and CN II-XII grossly intact with no noted focal neuro deficits Psych: Alert and oriented to person, place, time, and situation. Appropriate and pleasant affect. Assessment and Plan of Care: Elevated troponins, flat suspect type II NSTEMI Symptomatic bradycardia resulting in dizziness upon standing History of hypertension History of congestive heart failure, unknown type -Cardiology following, taking patient for stress echocardiogram today. -Telemetry monitoring -Troponins were trended and flat resulting at 0.123, 0.122, and 0.112. -Continue cardiac medication regimen with aspirin 81 mg daily, atorvastatin 40 mg nightly, Farxiga 10 mg daily, Lasix 40 mg daily, Plaquenil 200 mg twice daily, metoprolol 12.5 mg daily, and Aldactone 25 mg daily. -Orthostatic vitals were negative -Consulted Physical and Occupational Therapy for evaluation -Awaiting completion of Echocardiogram Hypercalcemia, Hypermagnesemia -Discontinued vitamin D supplement along with daily multivitamin. Continue with gentle IV fluid hydration with 0.9% normal saline at increased rate of 100 cc/h. Will monitor for resolution with repeat a.m. labs, if no improvement or further worsening additional orders to be placed at that time. - PTH normal findings at 59.0. Vitamin D level remains pending. History of prostate cancer with chronic urinary incontinence History of colon cancer status postsurgical resection with chronic bowel incontinence -Continue Flomax 0.4 mg twice daily. -Outpatient follow-up with age-appropriate cancer screenings.. Data and imaging reviewed: -Labs completed and reviewed. CBC remains unremarkable exception of low MPV of 9.2. BMP showing prerenal azotemia with BUN of 47 creatinine 1.03 and GFR of 92. Calcium remains elevated at 10.9 and magnesium of 2.5. Liver profile unremarkable. Vital signs reviewed.. Blood pressure 119/74, heart rate 55, respiratory rate 16, temp 97.4 F, and SpO2 of 96% on room air CODE STATUS: Full code DVT prophylaxis: Lovenox Discussed with: Patient, RN, and cardiology Anticipated discharge date: Pending completion of echocardiogram and stress test results Anticipated discharge place: Home Patient was seen independently by Nurse Practitioner. This document was prepared using [employer] dictation software. Please allow for errors in mechanical estimator while rare they do occur. Yung Guzmán NP rendered care for this patient independently, reviewed the findings and plan as documented in the note above and agree with plan. I did not physically speak with or examine the patient on this date. Objective - Vital Signs Vital signs: Vital Signs Temp 97.4 F L 12/27/24 08:00 Pulse 55 L 12/27/24 08:00 Resp 16 12/27/24 08:00 BP 119/74 12/27/24 08:00 Pulse Ox 96 12/27/24 08:00 FiO2 Intake & Output 12/26/24 12/27/24 12/27/24 18:59 06:59 18:59 Intake Total 540 10 Balance 540 10 Weight 76.1 kg Intake: IV 10 Invasive Line 1 10 Oral 540 Other: Voiding Method Toilet Toilet Toilet Urinal # Voids 1 - Labs CBC & Chem 7: 12/27/24 05:16 12/27/24 05:16 Labs: Abnormal Lab Results - Last 24 Hours (Table) 12/27/24 12/27/24 Range/Units 05:16 05:16 MPV 9.2 L (9.5-12.2) fL BUN 47 H (9-20) mg/dL Calcium 10.9 H (8.4-10.2) mg/dL Magnesium 2.5 H (1.6-2.3) mg/dL Total Protein 6.2 L (6.3-8.2) g/dL
--- NOTE | 2024-12-27 13:05 | CA ---
Stress Echo Report John Delcid Age: 73 Gender: M : 1950 Exam Date: 12/27/2024 10:25 Exam Location: [facility] Ht (in): 63 Wt (lb): 167 Ordering Physician: Isaac Ferraro MD ([email or web address]) Referring Physician: AMY,, Evaporator: LOTTIE Technologist Procedure CPT: Indication: angina pectoris ICD-9 Codes: Rhythm: Patient History: Cardiac Medications: SEE CHART,,,,, Medications in past 24 hours: Contrast: N/A Stress Results Protocol: Xavier Total dose(mL): Exercise Duration (min:sec): 3:[address] Depression (mm): Angina Score: Morgan Score: METS: 5.0 Resting HR: 80 Resting BP: 102 / 72 Peak HR: 139 Peak BP: 150 / 78 Max Predicted HR: 146 95 % Max Predicted HR Target HR: 124 Double Product: [id number] Stress Summary: BP Response: Reason for Termination: MAX EXERTION/TARGET HR Cardiac Symptoms: NO SYMPTOMS ECG Analysis Resting ECG: Stress ECG: Arrhythmia: Echo Analysis Resting Echo: Peak Echo Analysis: MEASUREMENTS (Male/Female) Normal Values CONCLUSIONS Baseline EKG revealed normal sinus rhythm with IVCD and poor R wave progression over precordial leads. Patient walked for 3 minutes 45 seconds and achieved a maximal heart rate of 139 bpm which is 95% of predicted maximal. Developed shortness of breath and fatigue no angina. No significant arrhythmia and EKG remained inconclusive. By EKG criteria this is an inconclusive stress test with limited exercise capacity Baseline echo images revealed normal wall motion wall thickening of all segments. The inferobasal area is not very well-seen. It the size there was good augmentation of left ventricle wall motion and wall thickening of all segments. Inferior basal area was not well-seen. However there is no evidence of stress- induced ischemia. Final impression: Limited exercise capacity with a inconclusive stress test by EKG criteria because of resting EKG changes. No evidence of ischemia on the stress echocardiogram Dr. Neha Sainz MD (Electronically Signed) Final Date: 27 December 2024 13:03
--- NOTE | 2024-12-27 13:30 | P.DS ---
Providers Date of admission: 12/23/24 16:52 Expected date of discharge: 12/27/24 Attending physician: Sandra Loyd MD Consults: 12/23/24 16:52 Consult Physician Urgent Consulting Provider: Jaron Leach Consult Reason/Comments: nstemi Do you want consulting provider notified?: Yes Primary care physician: Zane Roht DO Hospital Course: Discharge Diagnosis: Elevated troponins, flat suspect type II NSTEMI Symptomatic bradycardia resulting in dizziness upon standing History of hypertension History of chronic systolic congestive heart failure Hypercalcemia, PTH normal findings at 59.0. Discontinued vitamin D supplement along with daily multivitamin. Patient to follow-up outpatient with nephrology for further evaluation and management. Hypermagnesemia History of prostate cancer with chronic urinary incontinence History of colon cancer status postsurgical resection with chronic bowel incontinence Hospital Course: Patient is a very pleasant 73-year-old male with a past medical history of prostate cancer status post prostatectomy followed by radiation treatment, skin cancer status post removal, colon cancer status post bowel resection, hypertension, chronic urinary and bowel incontinence, and recently diagnosed heart failure. He reports he follows with Dr. Leach machine operator farmworker. He presented to our facility as a transfer from [facility] where he initially presented with a chief complaint of dizziness and balance issues. Patient underwent evaluation at their facility. Vital signs upon arrival to their facility show blood pressure 129/68, heart rate 101, respiratory rate 18, and SpO2 of 98% on room air. CT head without contrast was completed negative for acute intercranial process showing nonspecific white matter changes likely secondary to chronic small vessel ischemic disease. Labs completed and reviewed. CBC showing WBC count of 5.37, hemoglobin of 15.0, and platelet count of 196. BMP showing sodium 139, potassium 4.9, chloride of 107, bicarb of 27, BUN of 32.4, creatinine 1.08, and GFR of 71.04. Calcium 10.6, . Blood glucose 120. Liver profile unremarkable. Magnesium 2.8. Procalcitonin negative at 0.07. TSH 1.19. Lactic acid was 1.2 troponin was elevated at 0.125. EKG revealing sinus mechanism with T wave inversion in lateral leads I and aVL. Patient was given aspirin 325 mg x 1 dose, Plavix 75 mg x 1 dose and Lovenox 80 mg subcutaneously and transferred to our facility for higher level of care. Upon arrival to our facility, patient again underwent evaluation in the emergency department. Vital signs completed and reviewed. Blood pressure 109/91, heart rate 54, respiratory rate 18, temp 98.2 F, and SpO2 of 98% on room air. EKG upon arrival showing sinus bradycardia at 51 bpm again with T wave inversion in lateral leads I and aVL. Chest x-ray completed negative for acute cardiopulmonary process. Patient was started on low intensity heparin inf usion for treatment of NSTEMI and admitted under our services with consultation to cardiology.Troponins were trended and flat resulting at 0.123, 0.122, and 0.112. Echocardiogram report not available but per cardiology patient's EF was 40 to 45% and reported to be unchanged from echocardiogram completed outpatient in office. Stress echocardiogram completed reporting EKG criteria is inconclusive stress test with limited exercise capacity and due to resting EKG changes but no evidence of ischemia on the stress echocardiogram. Discussed results with cardiology stating patient cleared from cardiac perspective for discharge and recommending outpatient follow-up in their office in 1 week. Patient remains free from any further episodes of dizziness/lightheadedness or balance issues. Metoprolol was discontinued secondary to bradycardia. Patient has been started on losartan 25 mg daily and atorvastatin 40 mg daily. Patient medically optimized and free from any complaints at this time and to follow-up outpatient with PCP in 1 to 2 days, machine operator farmworker in 1 week, and recommended discontinuation of vitamin D and multivitamin due to persistent hypercalcemia and to follow-up with nephrology for further evaluation and continued management of hypercalcemia. Physical exam: Vital signs reviewed and stable. General: Nontoxic, no distress and appears stated age. Derm: Skin warm and dry, normal coloration for ethnicity. Head: Atraumatic, normocephalic and symmetric. Eyes: EOM's intact, no lid lag, and anicteric sclera Mouth: no lip lesions, mucus membranes moist Cardiovascular: regular rate and rhythm with normal S1S2, no murmur, positive posterior tibial pulses bilaterally, and cap refill < 2 seconds. Lungs: Respirations even, regular, and unlabored on room air. Lungs CTA bilaterally, no rhonchi, no rales, no wheezing, and no accessory muscle usage. Abdominal: soft, nontender to palpation, no guarding, no appreciable organomegaly Ext: ROM intact. No gross muscle atrophy, no edema, no contractures Neuro: Speech clear, face symmetrical and CN II-XII grossly intact with no noted focal neuro deficits Psych: Alert and oriented to person, place, time, and situation. Appropriate and pleasant affect. A total of 35 minutes of time were spent preparing this complex discharge summary. Pt was discharged on 12/27/2024 at 1:30 PM. Patient was seen independently by Nurse Practitioner. This document was prepared using [employer] dictation software. Please allow for errors in breeder hen service technician while rare they do occur. Yung Guzmán NP rendered care for this patient independently, reviewed the findings and plan as documented in the note above. I did not physically speak with or examine the patient on this date. Patient Condition at Discharge: Stable Plan - Discharge Summary Discharge Rx Participant: No New Discharge Prescriptions: New Losartan [Cozaar] 25 mg PO DAILY 30 Days #30 tab Atorvastatin [Lipitor] 40 mg PO HS 30 Days #30 tab Continue Ascorbic Acid [Vitamin C] 1,000 mg PO BID tadalafiL [Cialis] 5 mg PO DAILY Furosemide [Lasix] 40 mg PO DAILY Dapagliflozin Propanediol [Farxiga] 10 mg PO DAILY Hydroxychloroquine Sulfate [Plaquenil] 200 mg PO BID Ibuprofen [Motrin] 400 mg PO TID Tamsulosin [Flomax] 0.4 mg PO BID Spironolactone [Aldactone] 25 mg PO W/BRKFST Discontinued Mv-Min/Folic/K1/Lycopen/Lutein [Centrum Silver Men Tablet] 1 tab PO DAILY Metoprolol Succinate (ER) [Toprol Xl] 25 mg PO DAILY Cholecalciferol [Vitamin D3 (125 Mcg = 5000 Iu)] 125 mcg PO DAILY Discharge Medication List Ascorbic Acid [Vitamin C] 1,000 mg PO BID 08/23/22 [History] Hydroxychloroquine Sulfate [Plaquenil] 200 mg PO BID 08/23/22 [History] Dapagliflozin Propanediol [Farxiga] 10 mg PO DAILY 12/23/24 [History] Furosemide [Lasix] 40 mg PO DAILY 12/23/24 [History] Ibuprofen [Motrin] 400 mg PO TID 12/23/24 [History] Spironolactone [Aldactone] 25 mg PO W/BRKFST 12/23/24 [History] Tamsulosin [Flomax] 0.4 mg PO BID 12/23/24 [History] tadalafiL [Cialis] 5 mg PO DAILY 12/23/24 [History] Atorvastatin [Lipitor] 40 mg PO HS 30 Days #30 tab 12/27/24 [Rx] Losartan [Cozaar] 25 mg PO DAILY 30 Days #30 tab 12/27/24 [Rx] Follow up Appointment(s)/Referral(s): Zane Roth DO [Primary Care Provider] - 1-2 days (Please call to schedule follow up appointment. ) Valente Echeverria DO [STAFF PHYSICIAN] - 12/31/24 1:00 pm (please call and schedule outpatient appointment for further evaluation of hypercalcemia and discontinue vitamin D supplement until further evaluated, this could be a underlying cause. ) Jaron Leach MD [STAFF PHYSICIAN] - 01/04/25 9:15 am Patient Instructions/Handouts: Bradycardia (DC), Dizziness (GEN), Hypercalcemia (DC), Hypermagnesemia (DC) Activity/Diet/Wound Care/Special Instructions: Activity: As tolerated. Take breaks as needed. Diet: Heart healthy and carb consistent diet. Avoid salts, or foods with hidden salts such as canned or boxed foods and frozen dinners. Extra salt makes your heart work harder and traps the fluid in your body for longer. Special Instructions: Take all of your medications as directed and remember to keep all of your doctor's appointments and follow-up as needed. Thank you for allowing us to participate in your care, it was truly a pleasure having you for our patient!!! Discharge Disposition: HOME SELF-CARE
--- NOTE | 2024-12-28 10:42 | CA ---
Transthoracic Echo Report Name: John Delcid Age: 73 Gender: M : 1950 Exam Date: 12/27/2024 12:29 Exam Location: [place] [facility] Ht (in): 63 Wt (lb): 169 Ordering Physician: Bari Summers DO Attending/Referring Phys: Scientific Recruiter Marleen Hsu RDCS Procedure CPT: Indications: nstemi Cardiac Hx: Technical Quality: Fair Contrast 1: Total Dose (mL): Contrast 2: Total Dose (mL): MEASUREMENTS (Male / Female) Normal Values 2D ECHO LV Diastolic Diameter PLAX 5.1 cm 4.2 - 5.9 / 3.9 - 5.3 cm LV Systolic Diameter PLAX 4.3 cm IVS Diastolic Thickness 1.2 cm 0.6 - 1.0 / 0.6 - 0.9 cm LVPW Diastolic Thickness 0.9 cm 0.6 - 1.0 / 0.6 - 0.9 cm LV Relative Wall Thickness 0.4 RV Internal Dim ED PLAX 3.4 cm LVOT Diameter 2.0 cm LA Systolic Diameter LX 5.2 cm 3.0 - 4.0 / 2.7 - 3.8 cm LV Diastolic Volume MOD BP 70.2 cm??? 67 - 155 / 56 - 104 cm??? LV Systolic Volume MOD BP 40.9 cm??? 22 - 58 / 19 - 49 cm??? LV Ejection Fraction MOD BP 41.7 % >= 55 % LV Cardiac Index MOD BP 954.9 cm???/min???m??? LV Diastolic Volume MOD 4C 82.3 cm??? LV Systolic Volume MOD 4C 46.1 cm??? LV Ejection Fraction MOD 4C 44.0 % LV Cardiac Index MOD 4C 1180.2 cm???/min???m??? LV Diastolic Length 4C 7.3 cm LV Systolic Length 4C 6.4 cm LV Diastolic Volume MOD 2C 60.8 cm??? LV Systolic Volume MOD 2C 35.9 cm??? LV Ejection Fraction MOD 2C 40.9 % LV Cardiac Index MOD 2C 810.8 cm???/min???m??? LV Diastolic Length 2C 7.3 cm LV Systolic Length 2C 6.5 cm LA Volume 66.9 cm??? 18 - 58 / 22 - 52 cm??? LA Volume Index 35.7 cm???/m??? 16 - 28 cm???/m??? M-MODE Aortic Root Diameter MM 3.2 cm LA Systolic Diameter MM 4.5 cm LA Ao Ratio MM 1.4 AV Cusp Separation MM 1.3 cm DOPPLER MV Area PHT 3.1 cm??? Mitral E Point Velocity 60.1 cm/s Mitral A Point Velocity 47.7 cm/s Mitral E to A Ratio 1.3 MV Deceleration Time 242.0 ms FINDINGS Left Ventricle Left ventricular ejection fraction is estimated at 50%. Moderate concentric LVH. Focal hypokinesis of the posterior basal wall moderately increased septal wall thickness. Mildly decreased left ventricular ejection fraction. Hypokinetic posterior wall. Right Ventricle Normal right ventricular size and function. Unable to estimate the right ventricular systolic pressure. Right Atrium Moderate right atrial dilatation. Left Atrium Moderately increased left atrial diameter. Mitral Valve Mitral valve thickened. Mild mitral regurgitation. No mitral stenosis. Aortic Valve Trileaflet aortic valve. No aortic stenosis. No aortic regurgitation. Tricuspid Valve Structurally normal tricuspid valve. Trace tricuspid regurgitation. No tricuspid stenosis. Pulmonic Valve Structurally normal pulmonic valve. No pulmonic stenosis. Trace pulmonic regurgitation. Pericardium No pericardial or pleural effusion. Aorta Normal size aortic root and proximal ascending aorta. CONCLUSIONS Normal LV size moderate concentric LVH focal posterior wall hypokinesia ejection fraction of about 50%. Enlarged atria. Mild mitral and tricuspid regurgitation. No pericardial effusion Previewed by: Dr. Neha Sainz MD (Electronically Signed) Final Date: 28 December 2024 10:41
== END 2024-12-27 15:29 | disposition home or self-care (01) | DRG 281 ==
LOC: EC 15:52 → OBSVTOIN 16:52 → 3SCARD 16:52
PROVIDERS: ADMIT Student in an Organized Health Care Education/Training Program; ATTEND Student in an Organized Health Care Education/Training Program
PROC: 4A02XM4 Measurement of Cardiac Total Activity, External Approach (ICD-10-PCS; principal; 2024-12-27)
DX: R00.1 Bradycardia, unspecified (principal); I50.22 Chronic systolic (congestive) heart failure; I21.A1 Myocardial infarction type 2; I11.0 Hypertensive heart disease with heart failure; E83.41 Hypermagnesemia; I08.1 Rheumatic disorders of both mitral and tricuspid valves; I25.10 Atherosclerotic heart disease of native coronary artery without angina pectoris; E83.52 Hypercalcemia; I25.2 Old myocardial infarction; I49.3 Ventricular premature depolarization; M19.90 Unspecified osteoarthritis, unspecified site; Z79.84 Long term (current) use of oral hypoglycemic drugs; Z79.899 Other long term (current) drug therapy; Z85.038 Personal history of other malignant neoplasm of large intestine; Z85.46 Personal history of malignant neoplasm of prostate; Z85.828 Personal history of other malignant neoplasm of skin; Z86.16 Personal history of COVID-19; Z90.49 Acquired absence of other specified parts of digestive tract; Z90.79 Acquired absence of other genital organ(s); Z88.6 Allergy status to analgesic agent
CPT/HCPCS: 71046; 80053; 80061; 82652; 83036; 83735; 83880; 83970; 84443; 84484; 85027; 85049; 85730; 93306; 93351; 96361; 96365; 96366; 99291